=== PATIENT | male | born 1965 | race Caucasian/White ===

== ENCOUNTER → 2016-09-16 | Outpatient (CLI) | payer BC ==
[~2016-09-16] MED LIST: ASPCH81X PO; FISHOIL PO; LISI-729 PO; METO25TA3 PO; MULTTAB58 PO; ROSU20TA PO
[2016-09-16 09:38] LABS: MEAN CORPUSCULAR HEMOGLOBIN 30.2 pg (25-34); MEAN PLATELET VOLUME 9.9 fL (7.4-10.4); PLATELET COUNT 240 K/uL (130-400); RED BLOOD COUNT 5.36 M/uL (4.7-6.1); WHITE BLOOD COUNT 8.36 K/uL (4.8-10.8)
[2016-09-16 10:18] LABS: AST/SGOT 23 U/L (15-37); BLOOD UREA NITROGEN 11 mg/dl (7-18); BUN/CREATININE RATIO 11.8 (10-20); CARBON DIOXIDE 30 mmol/L (21-32); CHLORIDE 104 mmol/L (98-107); CREATININE 0.93 mg/dl (0.60-1.40); GLUCOSE 92 mg/dl (70-99); POTASSIUM 3.9 mmol/L (3.5-5.1); SODIUM 142 mmol/L (136-145)
[2016-09-16 10:27] LABS: ALB/GLOB RATIO 1.1 (0.9-2); ALKALINE PHOSPHATASE 70 U/L (45-117); ALT/SGPT 48 U/L (12-78); CHOLESTEROL 148 mg/dl (0-200); CHOLESTEROL/HDL RATIO 4.5; HDL CHOLESTEROL 33 mg/dl; LDL CHOLESTEROL CALCULATED 78 mg/dl; TRIGLYCERIDES 187 mg/dl (0-150); VERY LOW DENSITY LIPOPROT CALC 37 mg/dl
== END | disposition home or self-care (01) ==
LOC: C.LAB1850 08:38
PROVIDERS: ATTEND Internal Medicine Cardiovascular Disease
DX: I10 Essential (primary) hypertension (principal)

== ENCOUNTER → 2017-08-11 | Outpatient (CLI) | payer BC ==
[2017-08-11 10:10] LABS: BASO % 0.7 %; BASO ABS # 0.06 K/uL (0-0.2); EOS % 2.4 %; EOS ABS # 0.21 K/uL (0-0.5); HEMATOCRIT 45.5 % (42-52); IG# 0.02 K/uL (0.00-0.02); LYMPH % 35.4 %; LYMPH ABS # 3.15 K/uL (1.2-3.4); MEAN CELL VOLUME 85.8 fL (80-100); MEAN CORPUSCULAR HEMOGLOBIN 30.2 pg (25-34); MEAN CORPUSCULAR HGB CONC 35.2 g/dl (32-36); MEAN PLATELET VOLUME 9.7 fL (7.4-10.4); MONO % 9.7 %; MONO ABS # 0.86 K/uL (0.11-0.59); NEUT % 51.6 %; PLATELET COUNT 256 K/uL (130-400); RED CELL DISTRIBUTION WIDTH CV 12.3 % (11.5-14.5); RED CELL DISTRIBUTION WIDTH SD 38.6 fL (36.4-46.3)
[2017-08-11 10:28] LABS: HEMOGLOBIN A1C 5.2 % (4.5-5.6)
== END | disposition home or self-care (01) ==
LOC: C.LAB1850 08:56
PROVIDERS: ATTEND Internal Medicine Cardiovascular Disease
DX: E88.81 Metabolic syndrome and other insulin resistance (principal)

== ENCOUNTER → 2017-08-17 | Outpatient (CLI) | payer BC ==
[2017-08-17 10:01] LABS: AST/SGOT 27 U/L (15-37); BLOOD UREA NITROGEN 11 mg/dl (7-18); CALCIUM 9.1 mg/dl (8.5-10.1); CARBON DIOXIDE 29 mmol/L (21-32); GLUCOSE 91 mg/dl (70-99); POTASSIUM 3.9 mmol/L (3.5-5.1); SODIUM 136 mmol/L (136-145)
[2017-08-17 10:05] LABS: ALKALINE PHOSPHATASE 70 U/L (45-117); ALT/SGPT 52 U/L (12-78)
== END | disposition home or self-care (01) ==
LOC: C.LAB1850 08:42
PROVIDERS: ATTEND Internal Medicine Cardiovascular Disease
DX: E78.5 Hyperlipidemia, unspecified (principal); I10 Essential (primary) hypertension; I25.10 Atherosclerotic heart disease of native coronary artery without angina pectoris; I42.9 Cardiomyopathy, unspecified; E88.81 Metabolic syndrome and other insulin resistance

== ENCOUNTER 2021-11-15 19:03 | Inpatient (IN) ==
[2021-11-15 19:41] LABS: Hematocrit (blood only) 45.2 % (42-52); Hemoglobin 15.4 g/dL (14.0-18.0); Mean Corpuscular Hemoglobin 29.6 pg (25-34); Mean Corpuscular Hgb Conc 34.1 g/dL (32-36); Mean Corpuscular Volume 86.8 fL (80-100); Mean Platelet Volume 9.7 fL (7.4-10.4); Platelet Count 285 K/uL (130-400); RDW Coefficient of Variation 12.7 % (11.5-14.5); RDW Standard Deviation 40.7 fL (36.4-46.3); Red Blood Count 5.21 M/uL (4.7-6.1); White Blood Count 10.33 K/uL (4.8-10.8)
[2021-11-15] MEDS ORDERED: NITROGLYCERIN 2% OINTMENT 30GM TUBE EXT ONE (20:06)
[2021-11-15 20:07] LABS: Albumin Globulin Ratio 1.4 (0.9-2); Albumin Level 4.6 gm/dl (3.4-5.0); BUN Creatinine Ratio 11.2 (10-20); Bilirubin,Total 0.4 mg/dl (0.2-1.0); Calcium 8.7 mg/dl (8.5-10.1); Creatinine Clr Calc Pharmacy 96.1 ml/min; Est GFR (African American) 100.2 ml/min; Est GFR (Non-African American) 86.4 ml/min; Globulin 3.3 gm/dl (2.5-4.0); Potassium 3.3 mmol/L (3.5-5.1); Total Protein 7.9 gm/dl (6.0-8.3)
[2021-11-15 20:11] LABS: INR 2.5 (0.9-1.1); Partial Thromboplastin Ratio 1.6; Partial Thromboplastin Time 44.5 Seconds (21.0-31.0); Prothrombin Time 25.8 Seconds (9.0-12.0)
--- NOTE | 2021-11-15 20:12 | Emergency Department Note ---
History of Present Illness General Chief complaint: Cardiac Assessment Stated complaint: CHEST PAIN, SOB Time Seen by Provider: 11/15/21 20:00 Source: patient History of Present Illness Provider complaint: Chest pain Onset (ago): hour(s) Location: chest Radiation: other (Jaw) Pain Consistency: + constant Maximum Pain Intensity: 7 Quality: + other (Tightness) Relieved By: + none Associated symptoms: + chest pain and + shortness of breath; no cough, no fever/chills or no nausea/vomiting This is a 56-year-old male with a history of AZ presenting with chest pain beginning approximately 630 PM today while mowing the lawn with a push mower. He states it was in the middle of his chest. He describes it as a tightness. He took some Tums which did not improve his symptoms. He states that originally he did not radiate but since he has been in the emergency department he has tightness in his jaw. He did take aspirin prior to arrival. He also states that taking a deep breath makes his symptoms worse so he has been taking more shallow breaths which make him slightly short of breath. He denies any recent fever, illness, cough or cold symptoms, abdominal pain, vomiting, diarrhea or urinary symptoms. He denies using any erectile dysfunction drugs in the recent past. He states currently his chest pain is improved but he still has some slight tightness. He does feel worse tightness in his jaw currently. Home Medications Medication Instructions Recorded Confirmed Type ascorbic acid (vitamin C) 250 mg 250 - 500 mg PO DAILY 08/18/18 11/15/21 History tablet (Vitamin C) cetirizine 10 mg capsule (Zyrtec) 10 mg PO DAILY PRN 10/11/18 11/15/21 History aspirin 81 mg tablet,delayed 81 mg PO DAILY 10/29/19 11/15/21 History release (Adult Aspirin Regimen) warfarin 5 mg tablet 5 mg PO DAILY #100 tab 02/11/21 11/15/21 Rx metoprolol succinate 25 mg 25 mg PO DAILY #90 tab 02/15/21 11/15/21 Rx tablet,extended release 24 hr (Toprol XL) amlodipine 2.5 mg tablet 2.5 mg PO DAILY #90 tab 08/04/21 11/15/21 Rx cholecalciferol (vitamin D3) 25 25 mcg PO DAILY 08/04/21 11/15/21 History mcg (1,000 unit) capsule aspirin 81 mg tablet,delayed 162 mg PO .TODAY FOR SYMPTOMS 11/15/21 11/15/21 History release rosuvastatin 20 mg tablet 20 mg PO Q OTHER DAY 11/15/21 11/15/21 History rosuvastatin 40 mg tablet 40 mg PO Q OTHER DAY 11/15/21 11/15/21 History zinc gluconate 20 mg tablet 0 mg PO DAILY 11/15/21 11/15/21 History Allergies Allergy/AdvReac Type Severity Reaction Status Date / Time Penicillins Allergy Severe Hives Verified 11/15/21 21:57 Bactrim Allergy Unknown rash Verified 07/27/15 08:35 sulfamethoxazole Allergy Unknown rash Verified 11/15/21 21:57 trimethoprim Allergy Unknown rash Verified 11/15/21 21:57 atorvastatin AdvReac Intermediate Cramping Verified 11/15/21 21:57 of the Muscles dabigatran etexilate AdvReac Intermediate numbness Verified 11/15/21 21:57 [From Pradaxa] in feet lisinopril AdvReac Intermediate Cough Verified 11/15/21 21:57 losartan AdvReac Unknown Palpitation Verified 11/15/21 21:57 s apixaban [From Eliquis] AdvReac numbness Verified 11/15/21 21:57 in feet rivaroxaban [From Xarelto] AdvReac numbness Verified 11/15/21 21:57 in feet Past Med/Surg History Medical History (Updated 11/15/21 @ 20:45 by Josse Rojas MD) Acute anterior epistaxis Acute ischemic cerebrovascular accident (CVA) involving middle cerebral artery territory Acute ischemic stroke Cerebrovascular disease Ischemic cardiomyopathy 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 Presence of bare metal stent in anterior descending branch of left coronary artery Stroke Surgical History History of gastric surgery Pt states had "GI " surgery at 10 days of age for blockage Stented coronary artery Family History Other No significant family history Social History Smoking Status: Never smoker Second Hand Exposure: No; Hx Alcohol Use: No Hx Substance Use: No Preferred Language: Armenian Communication Ability: Effective Visual Impairment: No Limitations Hearing Ability: Normal Socially Responsible Investment Adviser Required: No Beliefs That Will Affect Care: None marital status: Current Living Situation: Family Feels Safe at Home: Yes Assistive Devices: Glasses Review of Systems See HPI for pertinent positives & negatives. and A total of 10 systems reviewed and were otherwise negative Physical Exam Vital Signs Vital Signs - 24 hr 11/15/21 19:07 11/15/21 19:40 11/15/21 20:00 Temperature 36.5 C Temperature Source Temporal Artery Scan Pulse Rate 56 L Pulse Rate [Apical] 54 L 60 Pulse Rate from SpO2 Sensor Respiratory Rate 20 20 16 Respiratory Effort / Characteristics Non-Labored Spontaneous Respiratory Depth Normal Blood Pressure 134/85 Blood Pressure [Right Arm] 91/61 L 116/85 Blood Pressure Mean 101 Blood Pressure Mean [Right Arm] 71 95 Pulse Oximetry 96 96 98 Oxygen Delivery Method Room Air Room Air Room Air Sepsis New/Unexplained Change in Mental Status N/A Sepsis Action Taken by Nursing No Action Required 11/15/21 20:04 11/15/21 20:30 11/15/21 21:00 Temperature Temperature Source Pulse Rate 59 L 70 Pulse Rate [Apical] Pulse Rate from SpO2 Sensor 72 Respiratory Rate 19 24 Respiratory Effort / Characteristics Respiratory Depth Blood Pressure 111/78 108/75 Blood Pressure [Right Arm] Blood Pressure Mean 89 86 Blood Pressure Mean [Right Arm] Pulse Oximetry 98 98 98 Oxygen Delivery Method Room Air Room Air Room Air Sepsis New/Unexplained Change in Mental Status Sepsis Action Taken by Nursing Constitutional: Vital signs reviewed. Eyes: Pupils are equal round reactive to light. Conjunctiva are noninjected. ENT: Pharynx is clear without erythema or exudate. Mucous membranes are moist. Neck supple without meningeal signs. Respiratory: Clear to auscultation bilaterally. Breath sounds are equal bilaterally. Cardiovascular: Regular rate and rhythm. No rubs or gallops. GI: Soft, nondistended and nontender. Bowel sounds are present. Musculoskeletal: No peripheral edema. No lower extremity tenderness. Integumentary: No cyanosis. or jaundice. Neurological: The patient is awake and alert. No focal deficits. Psychiatric: Normal affect. Not anxious appearing. Course Administered Medications Potassium Chloride (K Arian / Wtr) 10 meq in 100 mls @ 100 mls/hr IV Q1H STA; Protocol Stop: 11/15/21 22:19 Last Admin: 11/15/21 21:42 Dose: 100 mls/hr Documented by: [id number] Discontinued Medications Nitroglycerin (Nitroglycerin 2% Ointment 30gm Tube) 0.5 inch EXT NOW ONE Stop: 11/15/21 20:07 Last Admin: 11/15/21 20:11 Dose: 0.5 inch Documented by: [id number] Medical Decision Making Differential Diagnosis AZ, unstable angina, pleurisy, GERD, anxiety Medical Records Attestation: I reviewed the patient's medical records. I did perform a limited focused review of portions of the patient's old chart on the electronic medical record. The patient has had no recent pertinent visits to this hospital. Home Medications Current Medication List: was personally reviewed by me Laboratory Data Attestation: I reviewed the patient's lab results. Result diagrams: 11/15/21 19:27 11/15/21 19:27 Lab Results 11/15/21 11/15/21 11/15/21 Range/Units 19:27 19:27 19:27 WBC 10.33 (4.8-10.8) K/uL RBC 5.21 (4.7-6.1) M/uL Hgb 15.4 (14.0-18.0) g/dL Hct 45.2 (42-52) % MCV 86.8 (80-100) fL MCH 29.6 (25-34) pg MCHC 34.1 (32-36) g/dL RDW Std Deviation 40.7 (36.4-46.3) fL RDW Coeff of Eleonora 12.7 (11.5-14.5) % Plt Count 285 (130-400) K/uL MPV 9.7 (7.4-10.4) fL Neutrophils % (Manual) 26.8 % Lymphocytes % (Manual) 45.5 % Monocytes % (Manual) 6.3 % Eosinophils % (Manual) 0.9 % Basophils % (Manual) 0.9 % Neutrophils # (Manual) 2.77 (1.4-6.5) K/uL Total Absolute Neuts 2.77 (1.4-6.5) K/uL Lymphocytes # (Manual) 4.70 H (1.2-3.4) K/uL Total Abs Lymphocytes 6.72 H (1.2-3.4) K/uL Monocytes # (Manual) 0.65 H (0.11-0.59) K/uL Eosinophils # (Manual) 0.09 (0-0.5) K/uL Basophils # (Manual) 0.09 (0-0.2) K/uL Large Granular Lymphs 19.6 % # Lrg Granular Lymphs 2.02 K/uL RBC Morphology Unremarkable PT 25.8 H (9.0-12.0) Seconds INR 2.5 H (0.9-1.1) APTT 44.5 H (21.0-31.0) Seconds PTT Ratio 1.6 Sodium (136-145) mmol/L Potassium (3.5-5.1) mmol/L Chloride (98-107) mmol/L Carbon Dioxide (21-32) mmol/L Anion Gap (3-11) BUN (6-23) mg/dl Creatinine (0.6-1.4) mg/dl Est Cr Clr Drug Dosing ml/min Est GFR ( Amer) ml/min Est GFR (Non-Af Amer) ml/min BUN/Creatinine Ratio (10-20) Glucose (70-99(Fasting)) mg/dl Calcium (8.5-10.1) mg/dl Total Bilirubin (0.2-1.0) mg/dl AST (13-39) U/L ALT (7-52) U/L Alkaline Phosphatase (34-104) U/L Troponin I High Sens 11.5 (0-20) pg/ml Total Protein (6.0-8.3) gm/dl Albumin (3.4-5.0) gm/dl Globulin (2.5-4.0) gm/dl Albumin/Globulin Ratio (0.9-2) SARS-CoV-2, RNA, NAAT (NEGATIVE) 11/15/21 11/15/21 Range/Units 19:27 20:13 WBC (4.8-10.8) K/uL RBC (4.7-6.1) M/uL Hgb (14.0-18.0) g/dL Hct (42-52) % MCV (80-100) fL MCH (25-34) pg MCHC (32-36) g/dL RDW Std Deviation (36.4-46.3) fL RDW Coeff of Eleonora (11.5-14.5) % Plt Count (130-400) K/uL MPV (7.4-10.4) fL Neutrophils % (Manual) % Lymphocytes % (Manual) % Monocytes % (Manual) % Eosinophils % (Manual) % Basophils % (Manual) % Neutrophils # (Manual) (1.4-6.5) K/uL Total Absolute Neuts (1.4-6.5) K/uL Lymphocytes # (Manual) (1.2-3.4) K/uL Total Abs Lymphocytes (1.2-3.4) K/uL Monocytes # (Manual) (0.11-0.59) K/uL Eosinophils # (Manual) (0-0.5) K/uL Basophils # (Manual) (0-0.2) K/uL Large Granular Lymphs % # Lrg Granular Lymphs K/uL RBC Morphology PT (9.0-12.0) Seconds INR (0.9-1.1) APTT (21.0-31.0) Seconds PTT Ratio Sodium 138 (136-145) mmol/L Potassium 3.3 L (3.5-5.1) mmol/L Chloride 101 (98-107) mmol/L Carbon Dioxide 25 (21-32) mmol/L Anion Gap 12 H (3-11) BUN 11 (6-23) mg/dl Creatinine 0.98 (0.6-1.4) mg/dl Est Cr Clr Drug Dosing 96.1 ml/min Est GFR ( Amer) 100.2 ml/min Est GFR (Non-Af Amer) 86.4 ml/min BUN/Creatinine Ratio 11.2 (10-20) Glucose 119 H (70-99(Fasting)) mg/dl Calcium 8.7 (8.5-10.1) mg/dl Total Bilirubin 0.4 (0.2-1.0) mg/dl AST 27 (13-39) U/L ALT 31 (7-52) U/L Alkaline Phosphatase 58 (34-104) U/L Troponin I High Sens (0-20) pg/ml Total Protein 7.9 (6.0-8.3) gm/dl Albumin 4.6 (3.4-5.0) gm/dl Globulin 3.3 (2.5-4.0) gm/dl Albumin/Globulin Ratio 1.4 (0.9-2) SARS-CoV-2, RNA, NAAT NEGATIVE (NEGATIVE) Imaging Data Radiologist's Impression: Chest X-Ray 11/15/21 19:10 SINGLE VIEW CHEST CLINICAL HISTORY: Atypical chest pain FINDINGS: An AP, portable, upright chest radiograph is compared to study dated 10/15/2018. The cardiomediastinal silhouette is unremarkable. There is bibasilar atelectasis. The lungs and pleural spaces are otherwise clear. No pneumothorax is seen. The bony thorax is grossly intact. IMPRESSION: No acute cardiopulmonary abnormality. ACT 112: Negative or not required by law. Electronically signed by: Сергей Heredia M.D. 11/15/2021 8:24 PM ECG Data Attestation: I personally reviewed and interpreted this ECG as follows: Indication: + chest pain Rate (beats per minute): 58 Rhythm: + sinus bradycardia ECG Intervals/blocks: + Left bundle branch block ECG ST segments: + ST depression and + ST elevation ECG Findings: + Other (No concordant ST elevations or signs of acute AZ per Sgarbossa's criteria); no PVCs Comparison ECG Date: from (August 18, 2018) Change: no significant change (Left bundle branch block was present at the time.) Additional Comments: Repeat twelve-lead EKG performed at 2018 per my interpretation shows continued left bundle branch block. There is continued ST elevation in the inferior leads with depression in the high lateral leads. He now has depressions in the precordial leads in V1 and V2. The QRS complex is now upright where it was downward previously. Repeat twelve-lead EKG performed at 2035 per my interpretation shows normal sinus rhythm with a left bundle branch block. ST depressions are resolved in V1 and V2 and the axis is downward on the QRS. He has persistent ST elevations in the inferior leads and depressions in the high lateral leads with no criteria for AZ per sgarbossa criteria. MDM Narrative I did evaluate the patient as noted above. He is presenting with chest tightness rating into his jaw starting at 6:30 PM today while mowing the lawn with a push mower. He did take aspirin just prior to arrival. IV access was established. I did place an order for continuous cardiac monitoring. The monitor showed normal sinus rhythm at a rate of 62 bpm. I did order and personally review the patient's 12-lead EKG as described above. He has a left bundle branch block without evidence of acute AZ. I did order and personally reviewed the images of the patient's chest x-ray as described above. Chest x- ray is unremarkable. I did order and review the patient's blood work as noted in the electronic medical record. CBC is unremarkable without leukocytosis or anemia. INR is therapeutic at 2.5. Electrolytes show a potassium of 3.3 but are otherwise within normal limits. Troponin is negative. I did treat the patient with nitroglycerin paste half inch to the anterior chest wall. A repeat EKG was obtained as noted above. He appears to have some changes with ST depressions in V1 and V2 that were not previously there. I did immediately assessed the patient upon getting the EKG from the nurse. The patient states that his symptoms are now completely resolved. He has no tightness in his chest or his jaw. I did repeat another twelve-lead EKG and it appears to be the same as the first 1. He is asymptomatic currently. His COVID screening is negative. I did recommend hospitalization for further care and evaluation and repeat cardiac biomarkers. I did discuss the case with the hospitalist and egg caser. They did order a second high-sensitivity troponin and consulted cardiology. Impression & Plan Acute chest pain, Abnormal ECG, Anticoagulated on Coumadin Discharge Plan Visit Data Chief Complaint: Cardiac Assessment Stated Complaint: CHEST PAIN, SOB ED Provider: Josse Rojas Discharge Problem: Acute chest pain, Abnormal ECG, Anticoagulated on Coumadin Patient Disposition: Being Evaluated by Hospitalist Forms Stand Alone Forms: [facility] Prescriptions Prescriptions: No Action Zyrtec 10 mg capsule 10 mg PO DAILY PRN (Reason: allergy symptoms) RF: 0 aspirin [Adult Aspirin Regimen] 81 mg tablet,delayed release (DR/EC) 81 mg PO DAILY RF: 0 warfarin 5 mg tablet 5 mg PO DAILY Qty: 100 RF: 3 metoprolol succinate [Toprol XL] 25 mg tablet extended release 24 hr 25 mg PO DAILY Qty: 90 RF: 3 cholecalciferol (vitamin D3) 25 mcg (1,000 unit) capsule 25 mcg PO DAILY RF: 0 amlodipine 2.5 mg tablet 2.5 mg PO DAILY Qty: 90 RF: 3 ascorbic acid (vitamin C) [Vitamin C] 250 mg Tablet 250 - 500 mg PO DAILY RF: 0 zinc gluconate 20 mg Tablet 0 mg PO DAILY RF: 0 aspirin [Aspir-Low] 81 mg Tablet,Delayed Release (Dr/Ec) 162 mg PO .TODAY FOR SYMPTOMS RF: 0 rosuvastatin 20 mg tablet 20 mg PO Q OTHER DAY RF: 0 rosuvastatin 40 mg tablet 40 mg PO Q OTHER DAY RF: 0 Referrals Referrals: David Johnson MD [Primary Care Provider] -
--- NOTE | 2021-11-15 20:25 | XRay Report ---
SINGLE VIEW CHEST CLINICAL HISTORY: Atypical chest pain FINDINGS: An AP, portable, upright chest radiograph is compared to study dated 10/15/2018. The cardiom ediastinal silhouette is unremarkable. There is bibasilar atelectasis. The lungs and pleural spaces a re otherwise clear. No pneumothorax is seen. The bony thorax is grossly intact. IMPRESSION: No acute cardiopulmonary abnormality. ACT 112: Negative or not required by law. Electronically signed by: Сергей Heredia M.D. 11/15/2021 8:24 PM
[2021-11-15 20:30] LABS: ALC (manual) 6.72 K/uL (1.2-3.4); ANC (manual) 2.77 K/uL (1.4-6.5); Basophils # (manual) 0.09 K/uL (0-0.2); Basophils % (manual) 0.9 %; Eosinophils # (manual) 0.09 K/uL (0-0.5); Eosinophils % (manual) 0.9 %; Large Granular Lymph # (manua 2.02 K/uL; Large Granular Lymph % (manual) 19.6 %; Lymphocytes % (manual) 45.5 %; Monocytes # (manual) 0.65 K/uL (0.11-0.59); Monocytes % (manual) 6.3 %; Neutrophils # (manual) 2.77 K/uL (1.4-6.5); Neutrophils % (manual) 26.8 %; RBC Morphology Unremarkable
[2021-11-15] MEDS ORDERED: POTASSIUM CHLORIDE / WTR 10 MEQ/100 ML PLCT IV STA (21:20)
--- NOTE | 2021-11-15 21:52 | History & Physical Report ---
Date of Service November 15, 2021 Assessment & Plan (1) STEMI (ST elevation myocardial infarction): Plan: This is a 56-year-old male with past medical history of HI in 2008 and CVA in 2018 presenting to the ED with complaints of chest pain. Patient had a STEMI and a code heart alert has been called. Patient is currently clinically stable at this time. -EKG evidence with new right bundle branch block with elevated troponin at greater than 10,000 -Started on low-dose heparin without bolus as he is already chronically anticoagulated on warfarin -Discussed case with art studio teacher, Dr. Christianson, who recommended heart cath and to call a heart alert. -Patient will be taken to [facility] to have heart catheterization performed with possible sequential stent placement pending cath results -Further planning to be determined by interventional cardiology, appreciate their recommendations. -Admission to ICU postcatheterization likely (2) Hypertension: Plan: -Hold home antihypertensives -Appreciate interventional cardiology recommendations following catheterization (3) Anticoagulated on Coumadin: Plan: -Anticoagulation changes per interventional cardiology. (4) Dyslipidemia: Plan: -Continue rosuvastatin History of Present Illness Chief Complaint: Chest Pain Primary Care Provider: David Johnson MD Is a 56-year-old male with a past medical history of CAD, history of anterior HI in 2008, history of CVA in 2018, hypertension, hyperlipidemia, chronic anticoagulation on warfarin presenting to the ED for chief complaint of chest pain. Patient reports that he was using a push mower and was mowing the yard around 6:30 PM when he developed sternal chest pain. This caused the patient to take a break to go into the house and have a drink of water to which the chest pain improved. Patient went back outside to reattempt mowing the lawn again with a push mower and sequentially again developed chest pain. When the chest pain came after his second attempt of mowing the yard, he reports it did not improve when he took a break as it did previously. At that time patient took a Pepcid and 2 aspirin which was around 7 PM. His chest pain did not resolve which prompted him to go to the emergency room. At the time he describes the chest pain as a chest pressure that was midline at a 7-8 out of 10. Denies any radiation initially but it did radiate to his jaw at around 8 PM. When he arrived to the emergency room he had an EKG, troponin, routine lab work drawn. EKG showed new right bundle branch block as well as significant ST elevation in leads II, III and aVF. Initial troponin was negative but repeat 3 hours later was positive at over 10,000. Patient was given nitro patch which did relieve his symptoms. Currently at the time of writing this note patient is asymptomatic. Patient denies any shortness of breath, fever, chills, nausea, vomiting. Patient is chronically anticoagulated on warfarin and his most recent INR is 2.5 taken in the ED. Patient's last cardiology visit was with Dr. Gusman on August 04, 2021 for which she has routine care with. Allergies Allergy/AdvReac Type Severity Reaction Status Date / Time Penicillins Allergy Severe Hives Verified 11/15/21 21:57 Bactrim Allergy Unknown rash Verified 07/27/15 08:35 sulfamethoxazole Allergy Unknown rash Verified 11/15/21 21:57 trimethoprim Allergy Unknown rash Verified 11/15/21 21:57 atorvastatin AdvReac Intermediate Cramping Verified 11/15/21 21:57 of the Muscles dabigatran etexilate AdvReac Intermediate numbness Verified 11/15/21 21:57 [From Pradaxa] in feet lisinopril AdvReac Intermediate Cough Verified 11/15/21 21:57 losartan AdvReac Unknown Palpitation Verified 11/15/21 21:57 s apixaban [From Eliquis] AdvReac numbness Verified 11/15/21 21:57 in feet rivaroxaban [From Xarelto] AdvReac numbness Verified 11/15/21 21:57 in feet Home Medications Medication Instructions Recorded Confirmed Type ascorbic acid (vitamin C) 250 mg 250 - 500 mg PO DAILY 08/18/18 11/15/21 History tablet (Vitamin C) cetirizine 10 mg capsule (Zyrtec) 10 mg PO DAILY PRN 10/11/18 11/15/21 History aspirin 81 mg tablet,delayed 81 mg PO DAILY 10/29/19 11/15/21 History release (Adult Aspirin Regimen) warfarin 5 mg tablet 5 mg PO DAILY #100 tab 02/11/21 11/15/21 Rx metoprolol succinate 25 mg 25 mg PO DAILY #90 tab 02/15/21 11/15/21 Rx tablet,extended release 24 hr (Toprol XL) amlodipine 2.5 mg tablet 2.5 mg PO DAILY #90 tab 08/04/21 11/15/21 Rx cholecalciferol (vitamin D3) 25 25 mcg PO DAILY 08/04/21 11/15/21 History mcg (1,000 unit) capsule aspirin 81 mg tablet,delayed 162 mg PO .TODAY FOR SYMPTOMS 11/15/21 11/15/21 History release rosuvastatin 20 mg tablet 20 mg PO Q OTHER DAY 11/15/21 11/15/21 History rosuvastatin 40 mg tablet 40 mg PO Q OTHER DAY 11/15/21 11/15/21 History zinc gluconate 20 mg tablet 0 mg PO DAILY 11/15/21 11/15/21 History Past Med/Surg History Medical History (Updated 11/15/21 @ 22:53 by Dave Lowery DO) Acute anterior epistaxis Acute ischemic cerebrovascular accident (CVA) involving middle cerebral artery territory Acute ischemic stroke Cerebrovascular disease Ischemic cardiomyopathy 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 Presence of bare metal stent in anterior descending branch of left coronary artery Stroke Surgical History History of gastric surgery Pt states had "GI " surgery at 10 days of age for blockage Stented coronary artery Family History Other No significant family history Social History Smoking Status: Never smoker Second Hand Exposure: No; Do You Dip or Chew Tobacco: No; Tobacco Cessation Education Requested by Patient: No Hx Alcohol Use: No Hx Substance Use: No Preferred Language: Bolivian Communication Ability: Effective Visual Impairment: No Limitations Hearing Ability: Normal Neurological Physiotherapist Required: No Beliefs That Will Affect Care: None marital status: Current Living Situation: Spouse and Family Other Information That Helps Us Care for You: No Feels Safe at Home: Yes Safety Concerns: Feels Safe At This Time Assistive Devices: Glasses Review of Systems Review of Systems: All systems reviewed & are unremarkable except as noted in HPI & below Physical Exam Constitutional: WD/WN, vitals as above Eyes: + anicteric sclerae and PERRL Neck: trachea midline, no thyromegaly Respiratory: normal respiratory effort, lungs clear to auscultation Cardiovascular: RRR, no murmur, no edema Gastrointestinal (Abdomen): normal bowel sounds, soft, nontender, no hepatosplenomegaly Musculoskeletal: Head/Neck/Chest: normocephalic and head atraumatic Skin: no rashes, warm and dry Neurologic: moves all extremities Psychiatric: A+Ox3, euthymic affect Results & Data Results & Data ([facility]) Vital Signs (Past 12 Hours) Vital Signs Temp Pulse Pulse Resp BP BP Pulse Ox 11/15/21 21:00 70 24 108/75 98 11/15/21 20:30 59 L 19 111/78 98 11/15/21 20:04 98 11/15/21 20:00 60 16 116/85 98 11/15/21 19:40 54 L 20 91/61 L 96 11/15/21 19:07 36.5 C 56 L 20 134/85 96 Critical Care Time 50 minutes Supervising Physician Co-Signing Physician Notes Attending addendum: I have physically seen this patient, have supervised the medical residents activities, and agree with the H&P unless as otherwise noted. Assessment and Plan: STEMI/CAD/hypertension/history of stented coronary artery/ischemic cardiomyopathy ST elevations in leads II, III, aVF, suggesting RCA involvement Patient taken to [facility] emergently, with RCA stent placement Admits to ICU post procedure Cardiology medications per interventional Dr. Christianson Dyslipidemia- Continue high-dose statin atorvastatin Hypokalemia- Optimizing replacement orally and IV Follow serial laboratories in the a.m. Remaining orders and notations as noted Resident Activity Tracking Resident Involvement: Resident Care Provided Care Provided: Adult Hospital Medicine
[2021-11-15 21:59] LABS: Magnesium 1.9 mg/dl (1.7-2.4)
[2021-11-15 22:08] LABS: Troponin I High Sensitivity 10342.1 pg/ml (0-20)
[2021-11-15] MEDS ORDERED: Heparin IV Adult Wt-Based Standard WITH Bolus Protocol STA (22:13)
[2021-11-15] MEDS ORDERED: Heparin IV Adult Wt-Based Low-Dose *NO* Bolus Protocol IV STA (22:22)
[2021-11-15] MEDS ORDERED: HEPARIN SOD (PORCINE) 1000 UNIT/ML IV ONE (22:29)
[2021-11-15] MEDS ORDERED: HEPARIN SODIUM/DEXTROSE 25,000 UNITS/500 ML BAG IV SCH ×2 (22:30→22:45)
[2021-11-15] MEDS ORDERED: niCARdipine HCL INJ 2.5 MG/ML 10 ML AMP ONE (23:08)
[2021-11-15] MEDS ORDERED: MIDAZOLAM HCL 1 MG/ML 2ML VIAL ONE (23:08)
[2021-11-15] MEDS ORDERED: HEPARIN (PORCINE) 1000 UNIT/ML 10 ML (CATH LAB USE ONLY) ONE (23:08)
[2021-11-15] MEDS ORDERED: NITROGLYCERIN/D5W 100MCG/ML 20ML SYR ONE (23:09)
[2021-11-15] MEDS ORDERED: fentaNYL citrate 100 MCG/2 ML VIAL ONE (23:09)
--- NOTE | 2021-11-15 23:25 | Pre Anesthesia Assessment ---
Date of Service November 15, 2021 Pre Sedation Assessment Vital Signs Temp Pulse Pulse Resp BP BP Pulse Ox 11/15/21 23:03 110 H 24 138/91 11/15/21 22:30 100 H 23 133/82 96 11/15/21 22:00 74 21 111/75 11/15/21 21:30 94 H 24 134/87 98 11/15/21 21:00 70 24 108/75 98 11/15/21 20:30 59 L 19 111/78 98 11/15/21 20:04 98 11/15/21 20:00 60 16 116/85 98 11/15/21 19:40 54 L 20 91/61 L 96 11/15/21 19:07 97.7 F 56 L 20 134/85 96 Cardiovascular RRR, no murmur, no edema Respiratory normal respiratory effort, lungs clear to auscultation Pre-Sedation Airway Assessment Smoking Status: Never smoker Hx Sleep Apnea: No Hx Difficult Intubation: No Short, Thick Neck: No Thyromental Distance: > or= 3.5 Finger Breadths Oral Cavity: + WNL Mallampati Class: III ASA: ASA4 Procedure Planning Contraindications for Sedation: none Current Medications Reviewed: Yes Notes The planned sedation has been discussed with the patient. Informed Consent was obtained. I have identified the patient, determined the appropriateness of sedation and have assessed the patient immediately prior to the procedure. All medicine(s) and interventions are by my order.
--- NOTE | 2021-11-15 23:29 | Cardiology Consultation ---
Date of Consultation November 15, 2021 Assessment & Plan (1) STEMI (ST elevation myocardial infarction): Presentation consistent with high-risk ACS and recommend proceeding with urgent cardiac catheterization and likely primary PCI. No apparent contraindications to procedure. Discussed risks, benefits, alternatives of procedure with patient and they are willing to proceed. Further recommendations pending findings of coronary angiography. History of Present Illness History of Present Illness 56-year-old man here with acute chest pain and ECG concerning for acute IL. Patient seen emergently in the ED after heart alert activated after second troponin. Past cardiac history remarkable for anterolateral IL back in 2007 treated with bare-metal stent to LAD. Also has a history of prior CVA in 2018 thought to be cardioembolic, now on chronic Coumadin. Last echo 08/2021 showed LVEF 40 to 45% with apical akinesis. Other medical issues include hypertension, Dyslipidemia, GERD. Today around 6:30 PM was out mowing his lawn when developed substernal chest pressure. Symptoms improved with rest but recurred when attempted to mow his lawn again and symptoms persisted. Symptoms different than what he had with his prior IL (at that time primarily dizziness, shortness of breath). Presented to [facility] ED with ongoing chest pain, 7 out of 10. Initial ECG showed new right bundle branch block with ST elevations in 2, 3 and aVF. Initial troponin was negative. Patient was chest pain-free after nitroglycerin/nitro patch in ED. Second troponin elevated at greater than 10,000. Allergies Allergy/AdvReac Type Severity Reaction Status Date / Time Penicillins Allergy Severe Hives Verified 11/15/21 21:57 Bactrim Allergy Unknown rash Verified 07/27/15 08:35 sulfamethoxazole Allergy Unknown rash Verified 11/15/21 21:57 trimethoprim Allergy Unknown rash Verified 11/15/21 21:57 atorvastatin AdvReac Intermediate Cramping Verified 11/15/21 21:57 of the Muscles dabigatran etexilate AdvReac Intermediate numbness Verified 11/15/21 21:57 [From Pradaxa] in feet lisinopril AdvReac Intermediate Cough Verified 11/15/21 21:57 losartan AdvReac Unknown Palpitation Verified 11/15/21 21:57 s apixaban [From Eliquis] AdvReac numbness Verified 11/15/21 21:57 in feet rivaroxaban [From Xarelto] AdvReac numbness Verified 11/15/21 21:57 in feet Home Medications Medication Instructions Recorded Confirmed Type ascorbic acid (vitamin C) 250 mg 250 - 500 mg PO DAILY 08/18/18 11/15/21 History tablet (Vitamin C) cetirizine 10 mg capsule (Zyrtec) 10 mg PO DAILY PRN 10/11/18 11/15/21 History aspirin 81 mg tablet,delayed 81 mg PO DAILY 10/29/19 11/15/21 History release (Adult Aspirin Regimen) warfarin 5 mg tablet 5 mg PO DAILY #100 tab 02/11/21 11/15/21 Rx metoprolol succinate 25 mg 25 mg PO DAILY #90 tab 02/15/21 11/15/21 Rx tablet,extended release 24 hr (Toprol XL) amlodipine 2.5 mg tablet 2.5 mg PO DAILY #90 tab 08/04/21 11/15/21 Rx cholecalciferol (vitamin D3) 25 25 mcg PO DAILY 08/04/21 11/15/21 History mcg (1,000 unit) capsule aspirin 81 mg tablet,delayed 162 mg PO .TODAY FOR SYMPTOMS 11/15/21 11/15/21 History release rosuvastatin 20 mg tablet 20 mg PO Q OTHER DAY 11/15/21 11/15/21 History rosuvastatin 40 mg tablet 40 mg PO Q OTHER DAY 11/15/21 11/15/21 History zinc gluconate 20 mg tablet 0 mg PO DAILY 11/15/21 11/15/21 History Patient History Medical History (Updated 11/15/21 @ 22:53 by Dave Lowery DO) Acute anterior epistaxis Acute ischemic cerebrovascular accident (CVA) involving middle cerebral artery territory Acute ischemic stroke Cerebrovascular disease Ischemic cardiomyopathy 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 Presence of bare metal stent in anterior descending branch of left coronary a rtery Stroke Surgical History History of gastric surgery Pt states had "GI " surgery at 10 days of age for blockage Stented coronary artery Family History Other No significant family history Social History Smoking Status: Never smoker Second Hand Exposure: No; Hx Alcohol Use: No Hx Substance Use: No Preferred Language: Citizen Of [place] Communication Ability: Effective Visual Impairment: No Limitations Hearing Ability: Normal Director [employer] Required: No Beliefs That Will Affect Care: None marital status: Current Living Situation: Family Feels Safe at Home: Yes Assistive Devices: Glasses Review of Systems Review of Systems: All systems reviewed & are unremarkable except as noted in HPI & below Physical Exam Physical Exam: General: Comfortable HEENT: Sclerae anicteric, Mask in place Lungs: Clear to auscultation bilaterally Cardiac: Regular rate and rhythm, no murmurs. Vascular: 2+ radial, DP pulses. No bruits Abdomen: Soft, nontender Extremities: Well perfused, no peripheral edema Neuro: Nonfocal Psych: Alert orient x3, normal affect and mood Results & Data ([facility]) Vital Signs (Past 12 Hours) Vital Signs Temp Pulse Pulse Resp BP BP Pulse Ox 11/15/21 23:03 110 H 24 138/91 11/15/21 22:30 100 H 23 133/82 96 11/15/21 22:00 74 21 111/75 11/15/21 21:30 94 H 24 134/87 98 11/15/21 21:00 70 24 108/75 98 11/15/21 20:30 59 L 19 111/78 98 11/15/21 20:04 98 11/15/21 20:00 60 16 116/85 98 11/15/21 19:40 54 L 20 91/61 L 96 11/15/21 19:07 97.7 F 56 L 20 134/85 96 PG Care Time/CCT Total # of Minutes Spent Total Time Spent with Patient: Total time spent is greater than 50% in coordination of care (as documented) at patient's floor/unit and/or counseling patient: Coding Level of Care Code 57840 Office/OBS Consult Lvl 4 Diagnoses STEMI (ST elevation myocardial infarction) I21.3
[2021-11-15] MEDS ORDERED: EPTIFIBATIDE 2 MG/ML 10 ML VIAL (CATH LAB USE ONLY) IV ONE ×2 (23:45→23:46)
[2021-11-16] MEDS: CLOPIDOGREL BISULFATE 300 MG TAB ONE ×2 (00:10→01:36)
[2021-11-16] MEDS ORDERED: ACETAMINOPHEN 325 MG TAB PO PRN (00:12)
[2021-11-16] MEDS ORDERED: ONDANSETRON INJ 2 MG/ML 2 ML VIAL IV PRN (00:12)
--- NOTE | 2021-11-16 00:12 | Post Anesthesia Assessment ---
Date of Service November 16, 2021 Post Sedation Assessment Vital Signs Temp Pulse Pulse Resp BP BP Pulse Ox 11/15/21 23:03 110 H 24 138/91 11/15/21 22:30 100 H 23 133/82 96 11/15/21 22:00 74 21 111/75 11/15/21 21:30 94 H 24 134/87 98 11/15/21 21:00 70 24 108/75 98 11/15/21 20:30 59 L 19 111/78 98 11/15/21 20:04 98 11/15/21 20:00 60 16 116/85 98 11/15/21 19:40 54 L 20 91/61 L 96 11/15/21 19:07 97.7 F 56 L 20 134/85 96 Recovery Score Activity: Moves 4 extremities Respiration: Deep Breath/Cough Circulation: +/-20% PreAnes Value Consciousness: Fully Awake Oxygen Saturation: O2 needed for >90% Discharge Sedation Level of Care: Fast Track Phase II Post Sedation Plan On clinical assessment, the patient appears to have tolerated the sedation without complications. Patient is recovering as anticipated. Patient will continue to be monitored by nursing and may be discharged when sedation discharge criteria are met per below protocol. Upon Completions of procedure up to 15 minutes continue every 5 minute vital signs and the P.A.R. score; then discharge to a Phase I or Fast Track to Phase II per the following guidelines: * Discharge Patient to appropriate Phase II area if PAR is 8 or greater or return to pre- procedure baseline. The post - procedure orders will be as directed. * If PAR score is less than 8 or not return to pre-procedure baseline then patient will follow Phase I monitoring till PAR is reached for Phase II. The Phase I may be done in procedure room or may call to secure a Phase I area. * If naloxone or flumazenil are used for reversal, hold in Phase I for continued monitoring from when last reversal dose was given for a minimum of 60 minutes or longer pending the nurse and/or physician discretion of patient condition before discharge to Phase II. Please call the Sedation Physician to re-evaluate and complete post-note for discharge to Phase II area. Do NOT discharge from procedure sedation or Phase 1 until post- sedation evaluation note is complete by procedure /sedation MD Sedation Discharge Instructions to be given to the patient at discharge to home.
[2021-11-16] MEDS ORDERED: SODIUM CHLORIDE 0.9% 1000ML 1,000 ML IV SCH (00:15)
--- NOTE | 2021-11-16 00:32 | Cardiac Catheterization ---
[facility] Data: Nursing Program Chair Cardiac Status Clinical evaluation leading to the procedure CAD Presenation: Non STEMI Diagnostic Physicians Name: David Christianson MD Closure Device Recommendations: PCI without planned CABG Cardiac Cath Procedure Full Procedure Date November 16, 2021 Pre-Procedure Diagnosis Pre-Procedure Diagnosis: Acute Coronary Syndrome AUC Score AUC Score: 9 Post-Procedure Diagnosis Post-Procedure Diagnosis: Severe CAD, Successful PCI and Normal Intracardiac Pressures Procedure(s) Performed Procedure(s) Performed: Coronary Angiography, Left Heart Cath and Drug Eluting Stent Regional Driver David Christianson MD Thermite Bomb Loader(s) Hoa Estimated Blood Loss Estimated Blood Loss: 10 Medication(s) Medication(s): Clopidogrel, Fentanyl, Heparin, Lidocaine 1%, Nicardipine, Nitroglycerin and Versed Summary of Findings Indication: High risk ACS with presenting inferoposterior ST elevations on ECG Access: 6 Fr right radial artery Catheters: [place], JR4 guide Findings: LM -normal caliber, no significant disease LAD -medium caliber, earlymid segment stent widely patent without restenosis. Remainder of mid/distal vessel without disease and extends to apex. Medium D2 without disease Circumflex -medium caliber, no significant disease. Gives off a large OM2 without disease. Ramusmedium caliber, 30% ostial RCA -dominant, large caliber, diffuse 40% mid disease prior to 95% mid stenosis with heavy thrombus burden, distal RCA, PDA, PLB with OK II flow but without significant disease LVEDP -12 -- PCI -- Antithrombotic therapy: Heparin, IC Integrilin, clopidogrel Procedure: RCA cannulated with JR4 guide Pre-procedure flow OK 2 Inpatient Services Rn 50 wire passed across lesion into distal vessel Mid RCA lesion predilated with 2.5 compliant balloon IC Integrilin administered for heavy thrombus burden Dilated lesion stented with 3.5 x 18 mm [place] drug-eluting stent Stent post-dilated with 4.0 noncompliant balloon IC vasodilators administered for spasm Post procedure OK 3 flow, stent well expanded with minimal residual stenosis and no apparent cardiac complications. Arterial Closure: TR band Summary: 1. Acute 95% mid RCA stenosis with heavy thrombus burden and OK II distal flow. 2. Mild nonculprit coronary artery disease 40% earlymid RCA residual disease 30% ostial ramus 3. Normal intracardiac filling pressure 4. Successful PCI of mid RCA with single drug-eluting stent (3.5 x 18 mm [place]; postdilated with 4.0 NC) Recommendations: To PCU for continued monitoring Trend troponin until peak, obtain echocardiogram in the morning Loaded with clopidogrel 600 mg in Nursing Program Chair While in hospital continue triple therapy with aspirin, clopidogrel, Coumadin Discharge on dual therapy with Coumadin, clopidogrel Continue beta-marielle, start ARB. Continue home statin Consult cardiac Rehab Hemodynamics Rest Ao:: 115/77/93 Final Ao: 114/67/87 LV: 112/12 Recommendations Recommendations: PCI without planned CABG Specimens Specimens: None Radiation Exposure (mGy) 1661 Contrast (mls) 105 Anesthesia Moderate 0615-8693 Procedural Complication(s) None Disposition PCU I attest to the content of the Intraoperative Record and any orders documented therein. Any exceptions are noted below. [facility] Card Cath Procedure Codes Cardiac Catheterization Procedure 1: Cardiovascular Cath Procedures: 26641 Coronaries and LHC (+/-LV) Moderate Sedation Procedure 1: Sedation/Anesthesia: 01742 Mod Sedation by the same physician;Init15 Min Child Age 5 & Up Procedure 2: Sedation/Anesthesia: 63474 Mod Sedation by the same physician; Ea [id number] Minutes Stenting Procedure 1: Cardiovascular Stent Procedures: 18685 Perc transluminal revascularization of acute sub/total occl, aMI PG Care Time/CCT Total # of Minutes Spent Total Time Spent with Patient: Total time spent is greater than 50% in coordination of care (as documented) at patient's floor/unit and/or counseling patient:
[2021-11-16] MEDS: ASPIRIN 81 MG ECTAB PO SCH (08:01)
[2021-11-16] MEDS: CHOLECALCIFEROL 1,000 UNITS 25 MCG TAB PO SCH (08:01)
[2021-11-16] MEDS: METOPROLOL SUCC 25MG EXT REL TAB PO SCH (08:02)
[2021-11-16] MEDS: VALSARTAN 80 MG TAB PO SCH (08:02)
[2021-11-16] MEDS: ROSUVASTATIN CALCIUM 20 MG TAB PO SCH (08:02)
--- NOTE | 2021-11-16 09:24 | Electrocardiogram Report ---
Test Reason : Blood Pressure : / mmHG Vent. Rate : 080 BPM Atrial Rate : 080 BPM P-R Int : 202 ms QRS Dur : 136 ms QT Int : 374 ms P-R-T Axes : 057 -74 027 degrees QTc Int : 431 ms Normal sinus rhythm Left axis deviation Left bundle branch block Abnormal ECG When compared with ECG of 15-NOV-2021 21:49, (unconfirmed) T wave inversion no longer evident in Lateral leads Confirmed by Dom Benjamin ([id number]) on 11/16/2021 9:23:32 AM Referred By: REFERRED SELF Confirmed By:Dom Benjamin
--- NOTE | 2021-11-16 09:34 | Cardiology Progress Note ---
Date of Service November 16, 2021 Assessment & Plan (1) CAD (coronary artery disease), [place] coronary artery: Plan: Post PCI to mid RCA with single GABI Mild residual nonculprit disease 2. Ischemic cardiomyopathyEF 30% 3. Hypertension 4. Dyslipidemia 5. Prior CVA thought cardioembolicon chronic Coumadin Chest pain-free Hemodynamically and electrically stable No signs of heart failure on exam No access site complications Echo reviewedLV dilated with severe LV dysfunction, EF 30%, inferior, posterior clemons severely hypokinetic, apex remains akinetic continue triple therapy with aspirin, clopidogrel, Coumadin Continue Toprol-XL, start valsartan Continue high intensity statin. Question PCSK9 inhibitor candidate as an outpatient discussed with patient rationale for LifeVest. Patient going to think about device further trend troponin until peak. Continue to monitor on telemetry. Up walking halls today. If remains stable potential discharge tomorrow possibly with LifeVest. Admission and Anticipated Discharge Date Admission Date: November 16, 2021 Subjective Feeling well this morning. Minimal residual chest pain after procedure resolved. Denies shortness of breath. Up walking to bathroom without symptoms. Telemetry reviewedno events Review of Systems Review of Systems: All systems reviewed & are unremarkable except as noted in HPI & below Physical Exam Physical Exam: General: Comfortable HEENT: Sclerae anicteric Lungs: Scant crackles at bases bilaterally otherwise clear Cardiac: Regular rate and rhythm, no murmurs. Vascular: 2+ radial, DP pulses. Right radial artery access site with no ecchymosis, hematoma. Distal sensation intact. Abdomen: Soft, nontender Extremities: Well perfused, no peripheral edema Neuro: Nonfocal Psych: Alert orient x3, normal affect and mood Results & Data ([facility]) Vital Signs (Past 12 Hours) Vital Signs Temp Pulse Pulse Resp BP BP BP 11/16/21 07:01 98.8 F 61 18 109/64 11/16/21 04:20 98.8 F 66 18 120/71 11/16/21 03:18 98.1 F 70 17 118/83 11/16/21 02:20 76 16 113/76 11/16/21 01:49 98.4 F 78 18 105/74 11/16/21 01:48 81 18 105/74 11/16/21 01:20 72 18 115/76 11/16/21 01:05 82 18 125/69 11/16/21 01:00 79 04/26/22 00:50 74 24 112/72 11/16/21 00:35 80 20 115/72 11/15/21 23:03 110 H 24 138/91 11/15/21 22:30 100 H 23 133/82 11/15/21 22:00 74 21 111/75 11/15/21 21:30 94 H 24 134/87 Pulse Ox 11/16/21 07:01 95 11/16/21 04:20 95 11/16/21 03:18 95 11/16/21 02:20 96 11/16/21 01:49 95 11/16/21 01:48 95 11/16/21 01:20 95 11/16/21 01:05 96 11/16/21 01:00 11/16/21 00:50 96 11/16/21 00:35 95 11/15/21 23:03 11/15/21 22:30 96 11/15/21 22:00 11/15/21 21:30 98 PG Care Time/CCT Total # of Minutes Spent Total Time Spent with Patient: Total time spent is greater than 50% in coordination of care (as documented) at patient's floor/unit and/or counseling patient: Coding Level of Care Code 25235 Subseq Hosp Care Lvl 3 Diagnoses CAD (coronary artery disease), [place] coronary artery I25.10
--- NOTE | 2021-11-16 09:41 | Electrocardiogram Report ---
Test Reason : Blood Pressure : / mmHG Vent. Rate : 058 BPM Atrial Rate : 058 BPM P-R Int : 234 ms QRS Dur : 152 ms QT Int : 486 ms P-R-T Axes : -19 -69 098 degrees QTc Int : 477 ms Sinus bradycardia with 1st degree A-V block Left bundle branch block Abnormal ECG When compared with ECG of 18-AUG-2018 05:49, TN interval has increased Vent. rate has decreased BY 37 BPM Left bundle branch block is now Present Confirmed by Dom Benjamin ([id number]) on 11/16/2021 9:41:08 AM Referred By: REFERRED SELF Confirmed By:Dom Benjamin
--- NOTE | 2021-11-16 09:45 | Electrocardiogram Report ---
Test Reason : Blood Pressure : / mmHG Vent. Rate : 086 BPM Atrial Rate : 047 BPM P-R Int : 000 ms QRS Dur : 150 ms QT Int : 444 ms P-R-T Axes : 000 -75 104 degrees QTc Int : 531 ms Idioventricular rhythm Right bundle branch block Left anterior fascicular block Bifascicular block Inferior injury pattern * ACUTE CO Anterolateral infarct , age undetermined Abnormal ECG When compared with ECG of 15-NOV-2021 19:10, (unconfirmed) Idioventricular rhythm has replaced Sinus rhythm Vent. rate has increased BY 28 BPM Confirmed by Dom Benjamin ([id number]) on 11/16/2021 9:45:54 AM Referred By: REFERRED SELF Confirmed By:Dom Benjamin
--- NOTE | 2021-11-16 09:47 | Electrocardiogram Report ---
Test Reason : Blood Pressure : / mmHG Vent. Rate : 065 BPM Atrial Rate : 065 BPM P-R Int : 206 ms QRS Dur : 146 ms QT Int : 432 ms P-R-T Axes : 051 -70 103 degrees QTc Int : 449 ms Normal sinus rhythm Left bundle branch block Anterolateral infarct Inferior injury pattern * ACUTE MO Abnormal ECG When compared with ECG of 15-NOV-2021 20:19, (unconfirmed) Sinus rhythm has replaced Idioventricular rhythm Confirmed by Dom Benjamin ([id number]) on 11/16/2021 9:46:52 AM Referred By: REFERRED SELF Confirmed By:Dom Benjamin
--- NOTE | 2021-11-16 09:50 | Electrocardiogram Report ---
Test Reason : Blood Pressure : / mmHG Vent. Rate : 069 BPM Atrial Rate : 069 BPM P-R Int : 200 ms QRS Dur : 136 ms QT Int : 370 ms P-R-T Axes : 023 -73 072 degrees QTc Int : 396 ms Normal sinus rhythm Left axis deviation Left bundle branch block Abnormal ECG When compared with ECG of 15-NOV-2021 20:36, (unconfirmed) Inferior injury current has improved Confirmed by Dom Benjamin ([id number]) on 11/16/2021 9:49:51 AM Referred By: REFERRED SELF Confirmed By:Dom Benjamin
--- NOTE | 2021-11-16 11:30 | XCELERA ---
[id number]
[2021-11-16] MEDS ORDERED: WARFARIN SOD 5 MG TAB PO SCH (16:00)
--- NOTE | 2021-11-16 16:45 | Hospitalist Progress Note ---
Date of Service November 16, 2021 Assessment & Plan (1) CAD (coronary artery disease), [place] coronary artery: Plan: Post PCI to mid RCA with single GABI Continue aspirin Plavix 2. Ischemic cardiomyopathyEF 30% Currently compensated Currently on valsartan and Toprol-XL The patient could be candidate for LifeVest 3. Hypertension 4. Dyslipidemia 5. Prior CVA thought cardioembolic on chronic Coumadin Continue Toprol-XL, start valsartan Continue high intensity statin. Question PCSK9 inhibitor candidate as an outpatient If remains stable potential discharge tomorrow possibly with LifeVest. Admission and Anticipated Discharge Date Admission Date: November 16, 2021 Subjective Feeling well this morning. Minimal residual chest pain after procedure resolved. Denies shortness of breath. Up walking to bathroom without symptoms. Telemetry reviewedno events Physical Exam Physical Exam: General: Comfortable HEENT: Sclerae anicteric Lungs: Scant crackles at bases bilaterally otherwise clear Cardiac: Regular rate and rhythm, no murmurs. Vascular: 2+ radial, DP pulses. Right radial artery access site with no ecchymosis, hematoma. Distal sensation intact. Abdomen: Soft, nontender Extremities: Well perfused, no peripheral edema Neuro: Nonfocal Psych: Alert orient x3, normal affect and mood Constitutional: WD/WN, vitals as above Eyes: + anicteric sclerae and PERRL ENMT: Mallampati Class: III Neck: trachea midline, no thyromegaly Respiratory: normal respiratory effort, lungs clear to auscultation Cardiovascular: RRR, no murmur, no edema Gastrointestinal (Abdomen): normal bowel sounds, soft, nontender, no hepatosplenomegaly Musculoskeletal: Head/Neck/Chest: normocephalic and head atraumatic Skin: no rashes, warm and dry Neurologic: moves all extremities Psychiatric: A+Ox3, euthymic affect Results & Data Results & Data ([facility]) Vital Signs (Past 12 Hours) Vital Signs Temp Pulse Pulse Resp BP Pulse Ox 11/16/21 15:13 37.1 C 62 20 102/68 95 11/16/21 15:00 69 11/16/21 10:49 37.1 C 62 20 107/67 96 11/16/21 09:44 72 11/16/21 07:01 37.1 C 61 18 109/64 95 PG Care Time/CCT Total # of Minutes Spent Total Time Spent with Patient: Total time spent is greater than 50% in coordination of care (as documented) at patient's floor/unit and/or counseling patient: Coding Level of Care Code 54334 Subseq Hosp Care Lvl 2 Diagnoses CAD (coronary artery disease), [place] coronary artery I25.10
[2021-11-16] MEDS ORDERED: CLOPIDOGREL BISULFATE 75 MG TAB PO SCH (21:00)
--- NOTE | 2021-11-16 22:06 | Billing Data ---
Date of Service November 16, 2021 Coding Level of Care Code Critical Care 1st - mins
[2021-11-17 07:46] LABS: INR 2.2 (0.9-1.1); Prothrombin Time 22.2 Seconds (9.0-12.0)
[2021-11-17] MEDS: VALSARTAN 80 MG TAB PO SCH (08:30)
[2021-11-17] MEDS: ASPIRIN 81 MG ECTAB PO SCH (08:30)
[2021-11-17] MEDS: CHOLECALCIFEROL 1,000 UNITS 25 MCG TAB PO SCH (08:31)
[2021-11-17] MEDS: ROSUVASTATIN CALCIUM 20 MG TAB PO SCH (08:31)
[2021-11-17] MEDS: METOPROLOL SUCC 25MG EXT REL TAB PO SCH (08:31)
[2021-11-17 09:07] LABS: BUN Creatinine Ratio 13.4 (10-20); Calcium 8.4 mg/dl (8.5-10.1); Creatinine Clr Calc Pharmacy 113.4 ml/min; Est GFR (African American) 115.4 ml/min; Est GFR (Non-African American) 99.6 ml/min; Potassium 3.8 mmol/L (3.5-5.1)
[2021-11-17 09:17] LABS: Hematocrit (blood only) 43.3 % (42-52); Hemoglobin 14.6 g/dL (14.0-18.0); Mean Corpuscular Hemoglobin 29.1 pg (25-34); Mean Corpuscular Hgb Conc 33.7 g/dL (32-36); Mean Corpuscular Volume 86.4 fL (80-100); Platelet Count 218 K/uL (130-400); RDW Coefficient of Variation 13.1 % (11.5-14.5); RDW Standard Deviation 41.2 fL (36.4-46.3); Red Blood Count 5.01 M/uL (4.7-6.1)
--- NOTE | 2021-11-17 13:08 | Cardiology Progress Note ---
Date of Service November 17, 2021 Assessment & Plan (1) CAD (coronary artery disease), [place] coronary artery: Plan: Post PCI to mid RCA with single GABI Mild residual nonculprit disease 2. Ischemic cardiomyopathyEF 25-30% 3. Hypertension 4. Dyslipidemia 5. Prior CVA thought cardioembolicon chronic Coumadin Chest pain-free, troponin peaked No signs of heart failure on exam No access site complications Post procedure labs stable. -- Home today on clopidogrel, coumadin -- Continue current valsartan. Increase toprol XL to 50mg daily. Continue high intensity statin. Question PCSK9 inhibitor candidate as an outpatient LifeVest to be placed this afternoon. Ok with discharge after device in place. -- Follow-up with Dr. Gusman in 1-2 weeks. Admission and Anticipated Discharge Date Admission Date: November 16, 2021 Subjective Feeling well this morning. No chest pain. Slept well. tele reviewed - one episode of PAT~12 beats. No significant ventricular ectopy. Review of Systems Review of Systems: All systems reviewed & are unremarkable except as noted in HPI & below Physical Exam Physical Exam: General: Comfortable HEENT: Sclerae anicteric Lungs: Scant crackles at bases bilaterally otherwise clear Cardiac: Regular rate and rhythm, no murmurs. Vascular: 2+ radial, DP pulses. Right radial artery access site with no ecchymosis, hematoma. Distal sensation intact. Abdomen: Soft, nontender Extremities: Well perfused, no peripheral edema Neuro: Nonfocal Psych: Alert orient x3, normal affect and mood Results & Data ([facility]) Vital Signs (Past 12 Hours) Vital Signs Temp Pulse Pulse Resp BP Pulse Ox 11/17/21 11:05 98.2 F 75 16 117/68 96 11/17/21 08:00 63 11/17/21 07:03 97.9 F 74 14 129/75 94 11/17/21 03:39 98.6 F 66 16 111/62 94 PG Care Time/CCT Total # of Minutes Spent Total Time Spent with Patient: Total time spent is greater than 50% in coordination of care (as documented) at patient's floor/unit and/or counseling patient: Coding Level of Care Code 57039 Subseq Hosp Care Lvl 3 Diagnoses CAD (coronary artery disease), [place] coronary artery I25.10
--- NOTE | 2021-11-17 15:47 | Discharge Summary ---
Date of Service November 17, 2021 Admission HPI Per Admitting Provider Is a 56-year-old male with a past medical history of CAD, history of anterior DE in 2008, history of CVA in 2018, hypertension, hyperlipidemia, chronic anticoagulation on warfarin presenting to the ED for chief complaint of chest pain. Patient reports that he was using a push mower and was mowing the yard around 6:30 PM when he developed sternal chest pain. This caused the patient to take a break to go into the house and have a drink of water to which the chest pain improved. Patient went back outside to reattempt mowing the lawn again with a push mower and sequentially again developed chest pain. When the chest pain came after his second attempt of mowing the yard, he reports it did not improve when he took a break as it did previously. At that time patient took a Pepcid and 2 aspirin which was around 7 PM. His chest pain did not resolve which prompted him to go to the emergency room. At the time he describes the chest pain as a chest pressure that was midline at a 7-8 out of 10. Denies any radiation initially but it did radiate to his jaw at around 8 PM. When he arrived to the emergency room he had an EKG, troponin, routine lab work drawn. EKG showed new right bundle branch block as well as significant ST elevation in leads II, III and aVF. Initial troponin was negative but repeat 3 hours later was positive at over 10,000. Patient was given nitro patch which did relieve his symptoms. Currently at the time of writing this note patient is asymptomatic. Patient denies any shortness of breath, fever, chills, nausea, vomiting. Patient is chronically anticoagulated on warfarin and his most recent INR is 2.5 taken in the ED. Patient's last cardiology visit was with Dr. Gusman on August 04, 2021 for which she has routine care with. Principal Diagnosis Cardiac chest pain status postcardiac cath status post drug-eluting stent placement Worsening of systolic heart failure currently compensated status post LifeVest measurement pending delivery at home Discharge Exam General: Comfortable HEENT: Sclerae anicteric Lungs: Scant crackles at bases bilaterally otherwise clear Cardiac: Regular rate and rhythm, no murmurs. Vascular: 2+ radial, DP pulses. Right radial artery access site with no ecchymosis, hematoma. Distal sensation intact. Abdomen: Soft, nontender Extremities: Well perfused, no peripheral edema Neuro: Nonfocal Psych: Alert orient x3, normal affect and mood Constitutional WD/WN, vitals as above Eyes + anicteric sclerae and PERRL ENMT Mallampati Class: III Neck trachea midline, no thyromegaly Respiratory normal respiratory effort, lungs clear to auscultation Cardiovascular RRR, no murmur, no edema Gastrointestinal (Abdomen) normal bowel sounds, soft, nontender, no hepatosplenomegaly Musculoskeletal Head/Neck/Chest: normocephalic and head atraumatic Skin no rashes, warm and dry Neurologic moves all extremities Psychiatric A+Ox3, euthymic affect Discharge Data Allergies Allergy/AdvReac Type Severity Reaction Status Date / Time Penicillins Allergy Severe Hives Verified 11/15/21 21:57 Bactrim Allergy Unknown rash Verified 07/27/15 08:35 sulfamethoxazole Allergy Unknown rash Verified 11/15/21 21:57 trimethoprim Allergy Unknown rash Verified 11/15/21 21:57 atorvastatin AdvReac Intermediate Cramping Verified 11/15/21 21:57 of the Muscles dabigatran etexilate AdvReac Intermediate numbness Verified 11/15/21 21:57 [From Pradaxa] in feet lisinopril AdvReac Intermediate Cough Verified 11/15/21 21:57 losartan AdvReac Unknown Palpitation Verified 11/15/21 21:57 s apixaban [From Eliquis] AdvReac numbness Verified 11/15/21 21:57 in feet rivaroxaban [From Xarelto] AdvReac numbness Verified 11/15/21 21:57 in feet Consultations 11/15/21 20:53 ED Decision to Admit Stat Procedures Performed Operation Date: 11/15/21 23:00 Actual Procedures s Cineradiography w/Routine Exam - Karsten Christianson MD p Cath, Left with Cors and Vent - Karsten Christianson MD p Drug Eluting Stent SGl Vessel - Karsten Christiasnon MD Ordered Studies 11/15/21 23:06 CL Cath Imgs for PACS use only Stat Hospital Course (1) STEMI (ST elevation myocardial infarction): This is a 56-year-old male with past medical history of DE in 2008 and CVA in 2018 presenting to the ED with complaints of chest pain. Patient had a STEMI and a code heart alert has been called. Patient is currently clinically stable at this time. -EKG evidence with new right bundle branch block with elevated troponin at greater than 10,000 -Started on low-dose heparin without bolus as he is already chronically anticoagulated on warfarin -Status postcardiac cath and stent placement on 11/10 Post PCI to mid RCA with single GABI Mild residual nonculprit disease 2. Ischemic cardiomyopathyEF 25-30% 3. Hypertension 4. Dyslipidemia 5. Prior CVA thought cardioembolicon chronic Coumadin Chest pain-free, troponin peaked No signs of heart failure on exam No access site complications Post procedure labs stable. -- Home today on clopidogrel, coumadin -- Continue current valsartan. Increase toprol XL to 50mg daily. Continue high intensity statin. Question PCSK9 inhibitor candidate as an outpatient LifeVest agent presented measurement was done.The patient was discharged to be follow-up with cardiology office call him to make an appointment visit as per my communication with solutions market consultant lead software developer Dr. David Christianson (2) Systolic CHF with reduced left ventricular function, NYHA class 2: Echocardiogram showed EF of 25-30% which shows the ejection fraction has decreased in comparison to the echocardiogram that was done on 09/06/2021, showed ejection fraction of 44-45 Currently compensated and chronic The dose of metoprolol increased from 25-50 Discussed with cardiology continue the rest of meds (3) Hypertension: Stop Norvasc Blood pressure is on the low side Increase the dose of metoprolol from 25to 50 (4) Anticoagulated on Coumadin: -Anticoagulation changes per interventional cardiology. (5) Dyslipidemia: -Continue rosuvastatin Total Time Total Time Spent Total Time Spent (In Minutes): 45 Discharge Plan Discharge Items Patient Disposition: Home - Self-Care Reason For Visit: MYOCARDIAL INFRACTION Discharge Diagnosis: Coronary artery disease Activity: Resume your previous activity Bathing: No limitations Sexual Activity: When tolerated Exercise/Sports: Gradually increase as tolerated Driving/Machine Use: No limitations Weightbearing: Full weightbearing Non-emergency contact: Adobe Flex Developer Call non-emergency contact if: your symptoms worsen Follow-up/Referrals: David Johnson MD [Primary Care Provider] - 11/26/21 11:00 am Diet: Carb Consistent or DM2 and Low Sodium (2gm) Addtl Attending Provider Instructions: Your lead software developer office will call you for the follow-up appointment Pending Studies at Discharge: No Stand-Alone Forms: My [facility] [employer], Smoking Cessation Medications and DC Order Prescriptions: New metoprolol succinate 50 mg Tablet Extended Release 24 Hr 50 mg PO DAILY Qty: 60 RF: 0 clopidogrel 75 mg Tablet 75 mg PO HS Qty: 90 RF: 0 Continued Zyrtec 10 mg capsule 10 mg PO DAILY PRN (Reason: allergy symptoms) RF: 0 aspirin [Adult Aspirin Regimen] 81 mg tablet,delayed release (DR/EC) 81 mg PO DAILY RF: 0 warfarin 5 mg tablet 5 mg PO DAILY Qty: 100 RF: 3 cholecalciferol (vitamin D3) 25 mcg (1,000 unit) capsule 25 mcg PO DAILY RF: 0 ascorbic acid (vitamin C) [Vitamin C] 250 mg Tablet 250 - 500 mg PO DAILY RF: 0 zinc gluconate 20 mg Tablet 0 mg PO DAILY RF: 0 aspirin 81 mg Tablet,Delayed Release (Dr/Ec) 162 mg PO .TODAY FOR SYMPTOMS RF: 0 rosuvastatin 20 mg tablet 20 mg PO Q OTHER DAY RF: 0 rosuvastatin 40 mg tablet 40 mg PO Q OTHER DAY RF: 0 Discontinued metoprolol succinate [Toprol XL] 25 mg tablet extended release 24 hr 25 mg PO DAILY Qty: 90 RF: 3 amlodipine 2.5 mg tablet 2.5 mg PO DAILY Qty: 90 RF: 3 Discharge Orders: Discharge Order (Routine); Ordered 11/17/21 Ordered By: Justyn Torres Admission Data Admit Date/Time: 11/16/21 01:08 Attending Provider: Justyn Torres Admit Provider: Nadir Umanzor Primary Care Provider: David Johnson Other Providers: Alejandro Loving ; Karsten Christianson Other Interventions: Discharge Summary Assessment (RN) Last Done: 11/17/21 14:34 Coding Level of Care Code D/C DAY MANAGEMENT >30 MINS Diagnoses STEMI (ST elevation myocardial infarction) I21.3 Hypertension I10 Anticoagulated on Coumadin Z79.01 Dyslipidemia E78.5 Systolic CHF with reduced left ventricular function, NYHA class 2 I50.20
[2021-11-18] MEDS ORDERED: METOPROLOL SUCC 50MG EXT REL TAB PO SCH (09:00)
== END 2021-11-17 15:48 | disposition home or self-care (01) | DRG 247 ==
LOC: ED 19:03 → OR 23:20 → 2E 23:20 → SUATTDRO 11-16 01:08 → OBSVTOIN 11-16 01:08

== ENCOUNTER 2023-03-12 22:50 | Inpatient (IN) ==
[2023-03-12 23:46] LABS: Basophils # (auto) 0.07 K/uL (0-0.2); Basophils % (auto) 0.8 %; Eosinophils # (auto) 0.16 K/uL (0-0.50); Eosinophils % (auto) 1.8 %; Hematocrit (blood only) 44.5 % (42.0-52.0); Hemoglobin 15.8 g/dl (14.0-18.0); Immature Granulocytes # (auto) 0.01 K/uL (0.01-0.20); Immature Granulocytes % (auto) 0.1 %; Lymphocytes # (auto) 3.14 K/uL (1.2-3.4); Lymphocytes % (auto) 34.9 %; Mean Corpuscular Hemoglobin 29.8 pg (25.0-34.0); Mean Corpuscular Hgb Conc 35.5 g/dL (32.0-36.0); Mean Platelet Volume 9.6 fL (9.4-12.4); Monocytes # (auto) 1.02 K/uL (0.11-0.59); Monocytes % (auto) 11.3 %; Neutrophils # (auto) 4.59 K/uL (1.40-6.50); Neutrophils % (auto) 51.1 %; Platelet Count 250 K/uL (130-400); RDW Coefficient of Variation 12.1 % (11.5-14.5); RDW Standard Deviation 36.7 fL (36.4-46.3); White Blood Count 8.99 K/ul (4.8-10.8)
[2023-03-13 00:09] LABS: Potassium 3.4 mmol/L (3.5-5.1)
[2023-03-13 00:10] LABS: Albumin Globulin Ratio 1.6 (0.9-2); Albumin Level 4.7 gm/dl (3.4-5.0); BUN Creatinine Ratio 16.5 (10-20); Bilirubin,Total 0.4 mg/dl (0.2-1.0); Calcium 9.2 mg/dl (8.6-10.3); Creatinine Clr Calc Pharmacy 98.8 ml/min; Est GFR (African American) 108.8 ml/min; Est GFR (Non-African American) 93.9 ml/min; Globulin 2.9 gm/dl (2.5-4.0); Total Protein 7.6 gm/dl (6.0-8.3)
[2023-03-13 00:16] LABS: Troponin I High Sensitivity 10.2 pg/ml (0-20)
[2023-03-13 00:37] LABS: INR 2.3 (0.9-1.1); Partial Thromboplastin Ratio 1.5
[2023-03-13] MEDS ORDERED: POTASSIUM CHLORIDE CRTAB 20 MEQ TABCR PO STA (00:47)
--- NOTE | 2023-03-13 00:47 | Emergency Department Note ---
Impression & Plan Chest pain, Abnormal ECG ED Provider Note ED Provider Note NAME: ESTEVAN ANDERSON AGE:57 SEX: Male : 1965 ARRIVES VIA: Private vehicle INFORMANT: Patient ED PROVIDER(s): Kaitlynn Soto DO CHIEF COMPLAINT: Increased fatigue, chest pain, jaw pain HPI: This is a 57-year-old male presents emergency department due to concern for increased fatigue with any exertion over the last 3 to 4 weeks, intermittent bilateral upper chest pain, and recent jaw pain additionally while walking around the [facility]. Patient with significant cardiac history and prior stents. He does follow with Dr. Gusman of cardiology. Patient is anticoagulated due to history of a prior CVA which was thought to be thromboembolic. Patient notes symptoms initially seemed related to exertion although he has noticed intermittent upper abdominal pressure that seems to correlate with eating additionally. He states he is taking his medications as prescribed and as of Monday his INR was 2.9. He denies any other recent trauma or change in activity, no recent illness, fevers or chills. PAST MEDICAL HISTORY:See Below PAST SURGICAL HISTORY:See Below FAMILY HISTORY:See Below SOCIAL HISTORY:See Below HOME MEDICATIONS:See Below ALLERGIES:See Below VITALS:See Below PHYSICAL EXAMINATION: GENERAL: alert, well appearing, well nourished, no distress, non-toxic EYE EXAM: normal conjunctiva, PERRL and EOM's grossly intact OROPHARYNX: no exudate, no erythema, lips, buccal mucosa, and tongue normal and mucous membranes are moist NECK: supple, no nuchal rigidity, no adenopathy, non-tender LUNGS: Clear to auscultation. Normal chest wall mechanics, no w/r/r HEART: no murmurs, S1 normal and S2 normal ABDOMEN: abdomen soft, non-tender, normo-active bowel sounds, no masses, no rebound or guarding. BACK: Back is symmetrical on inspection and there is no deformity, no midline tenderness, no CVA tenderness. SKIN: no rashes, petechiae, orbruising UPPER EXTREMITIES: upper extremities are grossly normal. FROM, nml pulses b/l. LOWER EXTREMITIES: No pitting edema. FROM, nml pulses b/l. NEURO EXAM: Normal sensorium, cranial nerves II-XII grossly intact, normal speech, no facial droop,nogross weakness of arms, no gross weakness of legs. Gross sensation intact. No ataxia. Vital Signs: reviewed and remarkable Differential Diagnosis: ACS, PE, PNA, dissection, pericardial effusion, biliary colic, pancreatitis, pericarditis/myocarditis, hypertensive urgency, MEDICAL DECISION MAKING: This is a 57-year-old male with extensive heart history who presents with 3 to 4 weeks of increased fatigue with exertion, intermittent chest pain, intermittent epigastric pain, and tonight while walking around a local fair also experienced accompanying jaw pain. Patient afebrile and vital signs stable. Patient noted to have abnormal EKG by nursing staff who brought it to me for review. This was compared to a prior EKG and did reveal new changes. Patient seen by myself urgently while out in the triage area utilizing room D8. Labs drawn and sent, IV established, EKG and CXR performed and interpreted at bedside, and patient placed on telemetry. I did review EKGs with Dr. Christianson who performed the patient's cardiac catheterization last year. Agrees with plan for additional evaluation. EKG changes do not meet criteria for emergent catheterization. Patient had no recurrent symptoms while resting here. We discussed all results and plan, he verbalized understanding was in agreement. Patient sent for upper abdominal ultrasound additionally due to accompanying epigastric pain, this is reassuring. Chest x-ray otherwise reassuring. First troponin negative. Consultation(s): 2325: Discussed with Dr. Christianson via text after reviewing EKG's. 0125: Discussed with Dr. Loving for additional in patient management and evaluation. ER Treatment Provided: See below 0055: Patient updated on results. No current symptoms. Diagnostics Interpreted By Co: -ECG: Normal sinus at 77, first-degree AV block, left axis deviation, left bundle branch block, new inverted T wave noted in aVL, mildly increased ST elevation in V2 and V3, these were compared to an EKG from November 16, 2021 -Cardiac Monitoring: An order was placed for continuous cardiac monitoring. The monitor shows a rate of 80 with normal sinus rhythm. -Laboratory studies: As stated above and show below. -Imaging studies: X-ray Chest: A single view study of the chest was reviewed and was negative for cardiomegaly, focal infiltrate, effusion, pulmonary edema, or wide mediastinum. Triage Nursing Note Reviewed Prior/Outside Records Reviewed Past Med/Surg History Medical History (Updated 03/13/23 @ 01:57 by Alejandro Loving MD) Acute anterior epistaxis Acute ischemic cerebrovascular accident (CVA) involving middle cerebral artery territory Acute ischemic stroke Cerebrovascular disease Encounter for screening for malignant neoplasm of colon Encounter for screening for malignant neoplasm of rectum Ischemic cardiomyopathy Left bundle branch block (LBBB) 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 Presence of bare metal stent in anterior descending branch of left coronary artery STEMI (ST elevation myocardial infarction) Stroke Surgical History History of gastric surgery Pt states had "GI " surgery at 11 days of age for blockage Stented coronary artery Family History Other No significant family history Social History Smoking Status: Never smoker Second Hand Exposure: No; Do You Dip or Chew Tobacco: No; Hx Alcohol Use: No Hx Substance Use: No Preferred Language: Armenian Communication Ability: Effective Visual Impairment: No Limitations Hearing Ability: Normal Civil Engineering Intern Required: No Beliefs That Will Affect Care: None marital status: Current Living Situation: Spouse and Family Feels Safe at Home: Yes Assistive Devices: Glasses Allergies Allergies Allergy/AdvReac Type Severity Reaction Status Date / Time Penicillins Allergy Severe Hives Verified 03/13/23 00:20 Sulfa (Sulfonamide Allergy Intermediate Rash Verified 03/13/23 00:20 Antibiotics) sulfamethoxazole Allergy Intermediate rash Verified 03/13/23 00:20 trimethoprim Allergy Intermediate rash Verified 03/13/23 00:20 apixaban [From Eliquis] AdvReac Intermediate numbness Verified 03/13/23 00:20 in feet atorvastatin AdvReac Intermediate Cramping Verified 03/13/23 00:20 of the Muscles dabigatran etexilate AdvReac Intermediate numbness Verified 03/13/23 00:20 [From Pradaxa] in feet lisinopril AdvReac Intermediate Cough Verified 03/13/23 00:20 losartan AdvReac Intermediate Palpitation Verified 03/13/23 00:20 s rivaroxaban [From Xarelto] AdvReac Intermediate numbness Verified 03/13/23 00:20 in feet Home Meds Home Medications Medication Instructions Recorded Confirmed ascorbic acid (vitamin C) 250 mg 250 - 500 mg PO DAILY 08/18/18 03/13/23 tablet (Vitamin C) cetirizine 10 mg capsule (Zyrtec) 10 mg PO DAILY PRN allergy symptoms 10/11/18 03/13/23 cholecalciferol (vitamin D3) 25 25 mcg PO DAILY 03/13/23 03/13/23 mcg (1,000 unit) capsule (Vitamin D3) warfarin 5 mg tablet See Rx Instructions .Route .COMPLEX 03/13/23 03/13/23 zinc gluconate 50 mg tablet 0 mg PO DAILY 03/13/23 03/13/23 Previous Rx's Medication Instructions Recorded rosuvastatin 20 mg tablet 20 mg PO DAILY #90 tabs 05/09/22 valsartan 40 mg tablet 40 mg PO DAILY #90 tabs 11/24/22 clopidogrel 75 mg tablet 75 mg PO HS #90 tabs 02/08/23 metoprolol succinate 25 mg 25 mg PO DAILY #90 tabs 02/14/23 tablet,extended release 24 hr Results & Data (ED) Vital Signs Vital Signs - 24 hr 03/12/23 22:56 03/12/23 23:35 03/12/23 23:35 Temperature 36.8 C Temperature Source Temporal Artery Scan Pulse Rate 87 80 Pulse Rate [Apical] Pulse Rhythm Regular Pulse Rhythm [Apical] Pulse Strength Normal Pulse Strength [Apical] Respiratory Rate 16 16 Respiratory Effort / Characteristics Non-Labored Spontaneous Respiratory Depth Normal Respiratory Pattern Blood Pressure 154/85 H Blood Pressure [Right Arm] Blood Pressure Mean 108 Blood Pressure Mean [Right Arm] Blood Pressure Position Sitting Pulse Oximetry 97 96 96 Oxygen Delivery Method Room Air Room Air Room Air Oxygen Flow Rate 0 Sepsis Recent Fever Within 48 Hours No Sepsis New/Unexplained Change in Mental Status N/A Sepsis Action Taken by Nursing No Action Required 03/12/23 22:51 03/13/23 00:10 03/13/23 01:00 Temperature Temperature Source Pulse Rate 82 Pulse Rate [Apical] 68 Pulse Rhythm Pulse Rhythm [Apical] Regular Pulse Strength Pulse Strength [Apical] Normal Respiratory Rate 15 Respiratory Effort / Characteristics Non-Labored Spontaneous Respiratory Depth Normal Respiratory Pattern Regular Blood Pressure Blood Pressure [Right Arm] 122/85 Blood Pressure Mean Blood Pressure Mean [Right Arm] 97 Blood Pressure Position Pulse Oximetry 97 97 Oxygen Delivery Method Room Air Room Air Oxygen Flow Rate 0 Sepsis Recent Fever Within 48 Hours Sepsis New/Unexplained Change in Mental Status Sepsis Action Taken by Nursing Laboratory Data 03/12/23 23:30 08/20/23 23:30 Lab Results 03/12/23 03/12/23 03/12/23 Range/Units 23:30 23:30 23:30 WBC 8.99 (4.8-10.8) K/ul RBC 5.30 (4.70-6.10) M/uL Hgb 15.8 (14.0-18.0) g/dl Hct 44.5 (42.0-52.0) % MCV 84.0 (80.0-100.0) fL MCH 29.8 (25.0-34.0) pg MCHC 35.5 (32.0-36.0) g/dL RDW Std Deviation 36.7 (36.4-46.3) fL RDW Coeff of Eleonora 12.1 (11.5-14.5) % Plt Count 250 (130-400) K/uL MPV 9.6 (9.4-12.4) fL Immature Gran % (Auto) 0.1 % Neut % (Auto) 51.1 % Lymph % (Auto) 34.9 % [place] % (Auto) 11.3 % Eos % (Auto) 1.8 % Baso % (Auto) 0.8 % Neut # (Auto) 4.59 (1.40-6.50) K/uL Lymph # (Auto) 3.14 (1.2-3.4) K/uL [place] # (Auto) 1.02 H (0.11-0.59) K/uL Eos # (Auto) 0.16 (0-0.50) K/uL Baso # (Auto) 0.07 (0-0.2) K/uL Immature Gran # (Auto) 0.01 (0.01-0.20) K/uL PT 24.0 H (9.0-12.0) Seconds INR 2.3 H (0.9-1.1) APTT 43.0 H* (21.0-31.0) Seconds PTT Ratio 1.5 Sodium 138 (136-145) mmol/L Potassium 3.4 L (3.5-5.1) mmol/L Chloride 103 (98-107) mmol/L Carbon Dioxide 28 (21-32) mmol/L Anion Gap 7 (3-11) BUN 15 (6-23) mg/dl Creatinine 0.91 (0.6-1.4) mg/dl Est Cr Clr Drug Dosing 98.8 ml/min Est GFR ( Amer) 108.8 ml/min Est GFR (Non-Af Amer) 93.9 ml/min BUN/Creatinine Ratio 16.5 (10-20) Glucose 126 H (70-99(Fasting)) mg/dl Calcium 9.2 (8.6-10.3) mg/dl Magnesium 2.0 (1.7-2.4) mg/dl Total Bilirubin 0.4 (0.2-1.0) mg/dl AST 29 (13-39) U/L ALT 32 (7-52) U/L Alkaline Phosphatase 48 (34-104) U/L Troponin I High Sens 10.2 (0-20) pg/ml Total Protein 7.6 (6.0-8.3) gm/dl Albumin 4.7 (3.4-5.0) gm/dl Globulin 2.9 (2.5-4.0) gm/dl Albumin/Globulin Ratio 1.6 (0.9-2) Administered Medications Discontinued Medications Potassium Chloride (Potassium Chloride Crtab 20 Meq Tabcr) 40 meq PO NOW STA Stop: 03/13/23 00:48 Last Admin: 03/13/23 02:31 Dose: 40 meq Documented By: EWA Discharge Plan Visit Data Chief Complaint: Cardiac Assessment Stated Complaint: JAW PAIN,CHEST PAIN,PRIOR HEART ISSUES ED Provider: Kaitlynn Soto Discharge Problem: Chest pain, Abnormal ECG Patient Disposition: Admitted As Inpatient Discharge Instructions Interventions: ED Discharge Assessment Last Done: 03/13/23 03:30
--- NOTE | 2023-03-13 02:01 | History & Physical Report ---
Date of Service March 13, 2023 Assessment & Plan (1) Unstable angina: (2) Left bundle branch block (LBBB): (3) Antiplatelet or antithrombotic long-term use: (4) Presence of drug-eluting stent in right coronary artery: (5) Presence of bare metal stent in anterior descending branch of left coronary artery: (6) Ischemic cardiomyopathy: (7) Cerebrovascular disease: (8) Dyslipidemia: (9) Gastroesophageal reflux disease: (10) Hypertension: (11) Hyperlipidemia LDL goal <70: (12) CAD (coronary artery disease), [place] coronary artery: Plan Unstable angina/CAD/bare-metal stent in anterior branch of left coronary artery/drug-eluting stent in RCA/LBBB/hypertension- The patient will be admitted to telemetry for serial cardiac enzymes, serial EKG's, cardiac rhythm monitoring and a 2-D echocardiogram with Dopplers. Continue Plavix 75 mg daily, metoprolol succinate 25 mg daily, valsartan 40 mg daily Warfarin is presently therapeutic with INR of 2.3, but will hold and lieu of potential cardiac catheterization in the morning If delayed, patient will need to start on heparin drip Consult to interventional cardiology Dr. Christianson, who did his last interventions last year Hypokalemia- Potassium 3.4 on admission. Given 40 mEq p.o. by the ED Check a magnesium level Recheck laboratories in a.m. Hyperlipidemia- Patient has been intolerant of his rosuvastatin 20 mg since he was unable to tolerate 40, and will cut back up to 20 again he can again get gets right foot pain We will attempt to restart it 10 mg this admission after getting a 20 mg dose History of Present Illness Chief Complaint: The patient presents to the emergency department with complaint of exertional chest discomfort over the past 3 to 4 weeks, which worsened considerably 2 nights ago. 2 nights ago he had symptoms from his epigastrium that radiated up into his chest and into his subclavicular areas. This past evening he was walking a few miles at the [employer], slightly more than 2 days ago, and he had some epigastric discomfort but this time the discomfort went up and over the left side of his jaw. Symptoms did again resolve with rest, however, because of the change in intensity and character of the symptoms, he presented to the ED with his for assessment. Primary Care Provider: David Johnson MD The patient is a 57-year-old male with a past medical history including CAD, drug-eluting RCA stent, HFrEF with EF 35-40%, hyperlipidemia, long-term use of anticoagulation, history of [place], hypertension, GERD, pyogenic granuloma of nares, bare-metal stent in the anterior descending branch of left coronary artery, ischemic cardiomyopathy and cerebrovascular disease. The patient presents with symptoms as noted above, suggestive of unstable angina. He does describe some reflux type symptoms, which could be further addressed after his cardiac work- up. He has been taking his Coumadin as directed, and INR is 2.3, and has also been taking his Plavix as directed. He has been having difficulty tolerating his rosuvastatin, as it has been causing some right foot pain, similar to what happened with him with statins in the past. Allergies Allergy/AdvReac Type Severity Reaction Status Date / Time Penicillins Allergy Severe Hives Verified 03/13/23 00:20 Sulfa (Sulfonamide Allergy Intermediate Rash Verified 03/13/23 00:20 Antibiotics) sulfamethoxazole Allergy Intermediate rash Verified 03/13/23 00:20 trimethoprim Allergy Intermediate rash Verified 03/13/23 00:20 apixaban [From Eliquis] AdvReac Intermediate numbness Verified 03/13/23 00:20 in feet atorvastatin AdvReac Intermediate Cramping Verified 03/13/23 00:20 of the Muscles dabigatran etexilate AdvReac Intermediate numbness Verified 03/13/23 00:20 [From Pradaxa] in feet lisinopril AdvReac Intermediate Cough Verified 03/13/23 00:20 losartan AdvReac Intermediate Palpitation Verified 03/13/23 00:20 s rivaroxaban [From Xarelto] AdvReac Intermediate numbness Verified 03/13/23 00:20 in feet Home Medications Medication Instructions Recorded Confirmed Type ascorbic acid (vitamin C) 250 mg 250 - 500 mg PO DAILY 08/18/18 03/13/23 History tablet (Vitamin C) cetirizine 10 mg capsule (Zyrtec) 10 mg PO DAILY PRN allergy symptoms 10/11/18 03/13/23 History rosuvastatin 20 mg tablet 20 mg PO DAILY #90 tabs 05/09/22 03/13/23 Rx valsartan 40 mg tablet 40 mg PO DAILY #90 tabs 11/24/22 03/13/23 Rx clopidogrel 75 mg tablet 75 mg PO HS #90 tabs 02/08/23 03/13/23 Rx metoprolol succinate 25 mg 25 mg PO DAILY #90 tabs 02/14/23 03/13/23 Rx tablet,extended release 24 hr cholecalciferol (vitamin D3) 25 25 mcg PO DAILY 03/13/23 03/13/23 History mcg (1,000 unit) capsule (Vitamin D3) warfarin 5 mg tablet See Rx Instructions .Route .COMPLEX 03/13/23 03/13/23 History zinc gluconate 50 mg tablet 0 mg PO DAILY 03/13/23 03/13/23 History Past Med/Surg History Medical History (Updated 03/13/23 @ 01:57 by Alejandro Loving MD) Acute anterior epistaxis Acute ischemic cerebrovascular accident (CVA) involving middle cerebral artery territory Acute ischemic stroke Cerebrovascular disease Encounter for screening for malignant neoplasm of colon Encounter for screening for malignant neoplasm of rectum Ischemic cardiomyopathy Left bundle branch block (LBBB) 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 Presence of bare metal stent in anterior descending branch of left coronary artery STEMI (ST elevation myocardial infarction) Stroke Surgical History History of gastric surgery Pt states had "GI " surgery at 11 days of age for blockage Stented coronary artery Family History Other No significant family history Social History Smoking Status: Never smoker Second Hand Exposure: No; Do You Dip or Chew Tobacco: No; Hx Alcohol Use: No Hx Substance Use: No Preferred Language: Macedonian Communication Ability: Effective Visual Impairment: No Limitations Hearing Ability: Normal Saxophone Teacher Required: No Beliefs That Will Affect Care: None marital status: Current Living Situation: Spouse and Family Feels Safe at Home: Yes Assistive Devices: Glasses Review of Systems Review of Systems: The patient denies palpitations, cough, lower extremity swelling, sore throat, fevers, chills, sweats, nausea, vomiting, diarrhea , constipation, abdominal pain, pelvic pain, blood in urine or stool, dysuria, urinary frequency or urgency, lightheadedness, dizziness, headache, memory loss, loss of consciousness, rash, abnormal bruising or bleeding, imbalance, focal or generalized weakness, numbness or tingling in arms or legs, generalized arthralgias or myalgias, back pain, or night sweats. The review of systems is otherwise negative other than for that already noted above, and at least 10 systems have been reviewed. Physical Exam Physical Exam: The patient is awake, alert and oriented 3, well developed and well nourished, normocephalic and atraumatic, lying in bed and in no acute distress. HEENT--PERRL, EOMI, mucous membranes and oropharynx normal. Neck--supple. No JVD. No bruits. Thyroid normal, trachea midline, no adenopathy. Heart--normal S1 and S2. No murmurs, rubs or gallops. Lungs--clear bilaterally, no respiratory distress, no accessory muscle use. Abdomen--normal bowel sounds and soft. Nontender. Nondistended, no hernias or masses, no organomegaly. Extremities--no cyanosis or clubbing. No edema. Dermatologic--normal skin turgor, normal color, no abnormal lymph nodes, no rash. Neurologic--cranial nerves II through XII grossly intact. Rheumatologic--normal range of motion. Psychiatric--normal affect. Results & Data Results & Data Vital Signs (Past 12 Hours) Vital Signs Temp Pulse Resp BP Pulse Ox O2 Del Method O2 Flow Rate 03/13/23 00:10 82 03/12/23 22:51 97 Room Air 0 03/12/23 23:35 80 16 96 Room Air 03/12/23 23:35 96 Room Air 0 03/12/23 22:56 36.8 C 87 16 154/85 H 97 Room Air Laboratory Results Laboratory Results WBC 8.99 K/ul (4.8-10.8) 03/12/23 23:30 RBC 5.30 M/uL (4.70-6.10) 03/12/23 23:30 Hgb 15.8 g/dl (14.0-18.0) 03/12/23 23:30 Hct 44.5 % (42.0-52.0) 03/12/23 23:30 MCV 84.0 fL (80.0-100.0) 03/12/23 23:30 MCH 29.8 pg (25.0-34.0) 03/12/23 23:30 MCHC 35.5 g/dL (32.0-36.0) 03/12/23 23: RDW Std Deviation 36.7 fL (36.4-46.3) 03/12/23: RDW Coeff of Eleonora 12.1 % (11.5-14.5) 03/12/23 23:30 Plt Count 250 K/uL (130-400) 03/12/23 23: MPV 9.6 fL (9.4-12.4) 03/12/23 23: Immature Gran % (Auto) 0.1 % 03/12/23 23:30 Neut % (Auto) 51.1 % 03/12/23 23:30 Lymph % (Auto) 34.9 % 03/12/23 23: [place] % (Auto) 11.3 % 03/12/23 23:30 Eos % (Auto) 1.8 % 03/12/23 23: Baso % (Auto) 0.8 % 03/12/23 23: Neut # (Auto) 4.59 K/uL (1.40-6.50) 03/12/23 23:30 Lymph # (Auto) 3.14 K/uL (1.2-3.4) 03/12/23 23:30 [place] # (Auto) 1.02 K/uL (0.11-0.59) H 03/12/23 23:30 Eos # (Auto) 0.16 K/uL (0-0.50) 03/12/23 23:30 Baso # (Auto) 0.07 K/uL (0-0.2) 03/12/23 23:30 Immature Gran # (Auto) 0.01 K/uL (0.01-0.20) 03/12/23 23:30 PT 24.0 Seconds (9.0-12.0) H 03/12/23 23:30 INR 2.3 (0.9-1.1) H 03/12/23 23:30 APTT 43.0 Seconds (21.0-31.0) H* 03/12/23 23:30 PTT Ratio 1.5 03/12/23 23:30 Sodium 138 mmol/L (136-145) 03/12/23 23:30 Potassium 3.4 mmol/L (3.5-5.1) L 03/12/23 23:30 Chloride 103 mmol/L (98-107) 03/12/23 23:30 Carbon Dioxide 28 mmol/L (21-32) 03/12/23 23:30 Anion Gap 7 (3-11) 03/12/23 23:30 BUN 15 mg/dl (6-23) 03/12/23 23:30 Creatinine 0.91 mg/dl (0.6-1.4) 03/12/23 23:30 Est Cr Clr Drug Dosing 98.8 ml/min 03/12/23 23:30 Est GFR ( Amer) 108.8 ml/min 03/12/23 23:30 Est GFR (Non-Af Amer) 93.9 ml/min 03/12/23 23:30 BUN/Creatinine Ratio 16.5 (10-20) 03/12/23 23:30 Glucose 126 mg/dl (70-99(Fasting)) H 03/12/23 23:30 Calcium 9.2 mg/dl (8.6-10.3) 03/12/23 23:30 Total Bilirubin 0.4 mg/dl (0.2-1.0) 03/12/23 23:30 AST 29 U/L (13-39) 03/12/23 23:30 ALT 32 U/L (7-52) 03/12/23 23:30 Alkaline Phosphatase 48 U/L (34-104) 03/12/23 23:30 Troponin I High Sens 10.2 pg/ml (0-20) 03/12/23 23:30 Total Protein 7.6 gm/dl (6.0-8.3) 03/12/23 23:30 Albumin 4.7 gm/dl (3.4-5.0) 03/12/23 23:30 Globulin 2.9 gm/dl (2.5-4.0) 03/12/23 23:30 Albumin/Globulin Ratio 1.6 (0.9-2) 03/12/23 23:30 Code Status & VTE Plan Code Status Full code VTE Prophylaxis Plan VTE Prophylaxis will be ordered: Yes PG Care Time/CCT Total # of Minutes Spent Total Time Spent with Patient: Total time spent is greater than 50% in coordination of care (as documented) at patient's floor/unit and/or counseling patient: Coding Level of Care Code 52247 INT INP/OBS CARE MIN Diagnoses Unstable angina I20.0 Left bundle branch block (LBBB) I44.7 Antiplatelet or antithrombotic long-term use Z79.02 Presence of drug-eluting stent in right coronary artery Z95.5 Presence of bare metal stent in anterior descending branch of left coronary artery Z95.5 Ischemic cardiomyopathy I25.5 Cerebrovascular disease I67.9 Dyslipidemia E78.5 Gastroesophageal reflux disease K21.9 Hypertension I10 Hyperlipidemia LDL goal <70 E78.5 CAD (coronary artery disease), [place] coronary artery I25.10
[2023-03-13] MEDS ORDERED: CETIRIZINE HCL 10 MG TABLET PO PRN (03:29)
[2023-03-13] MEDS ORDERED: ACETAMINOPHEN 325 MG TAB PO PRN (03:29)
[2023-03-13] MEDS ORDERED: NSS + 20MEQ KCL 20 MEQ/1,000 ML BAG IV SCH (04:15)
[2023-03-13 05:31] LABS: Albumin Level 4.4 gm/dl (3.4-5.0); BUN Creatinine Ratio 13.3 (10-20); Calcium 9.2 mg/dl (8.6-10.3); Creatinine Clr Calc Pharmacy 108.3 ml/min; Est GFR (Non-African American) 98.4 ml/min; Phosphorus 3.8 mg/dl (2.5-4.9); Potassium 4.5 mmol/L (3.5-5.1); Troponin I High Sensitivity 11.4 pg/ml (0-20)
--- NOTE | 2023-03-13 06:43 | Ultrasound Report ---
US abdomen limited CLINICAL HISTORY: epigastric pain after eating TECHNIQUE: Multiple real-time sonographic images of the right upper quadrant were obtained. Comparison: None available at the time of this dictation. FINDINGS: The liver is diffusely homogenous with normal contour and echogenicity. Small cluster of probable cys ts measure up to 1 cm in diameter. No intrahepatic ductal dilatation is seen. Gallbladder appears c ontracted without stones or wall thickening. A sonographic Watson's sign was not elicited by the sono grapher. The common duct measures 0.3 cm in diameter at the level of the hepatic artery. The visua lized portions of the pancreas appear normal. The right kidney shows normal echogenicity, cortical thickness and renal contour. The right kidney sh ows no evidence of hydronephrosis or mass. No ascites or free fluid is seen in Campo's pouch. IMPRESSION: Unremarkable right upper quadrant ultrasound. ACT 112: Negative or not required by law. Electronically signed by: Fabian Soto M.D. 03/13/2023 6:42 AM
--- NOTE | 2023-03-13 07:30 | XRay Report ---
XR chest 1V not portable CLINICAL HISTORY: Chest pain, nonspecific TECHNIQUE: Single frontal radiograph of the chest was obtained. Comparison: Comparison is made to chest radiograph 11/15/2021 FINDINGS: No lines and tubes are seen. The cardiomediastinal silhouette is normal. The lungs are clear. No evid ence of pleural effusion or pneumothorax. IMPRESSION: No acute chest disease. ACT 112: Negative or not required by law. Electronically signed by: Fabian Soto M.D. 03/13/2023 7:29 AM
[2023-03-13] MEDS: ZINC SULFATE 220 MG CAPSULE PO SCH (07:57)
[2023-03-13] MEDS: VALSARTAN 80 MG TAB PO SCH (07:57)
[2023-03-13] MEDS: ROSUVASTATIN CALCIUM 20 MG TAB PO SCH (07:58)
[2023-03-13] MEDS: CHOLECALCIFEROL 1,000 UNITS 25 MCG TAB PO SCH (07:58)
[2023-03-13] MEDS: METOPROLOL SUCC 25MG EXT REL TAB PO SCH (07:58)
--- NOTE | 2023-03-13 08:59 | Hospitalist Progress Note ---
Date of Service March 13, 2023 Assessment & Plan (1) Unstable angina: Plan: pt presented with CP, h/o CAD had a Bare metal stent LAD, GABI 11/13, RCA on plavix, metoprolol,cretor, valsartan initial troponin 10->11 Pt with a history of chronic systolic heart failure, EF 35-40% Warfarin is presently therapeutic with INR of 2. 6, warfarin remains on hold due to potential cardiac catheterization interventional cardiology wishes to wait until patient's INR is less than 2 Given 2.5 mg of p.o. vitamin K subsequently once his INR reduces below 1.9 we will institute heparin drip as the patient has had neurological symptoms once his INR is been low Dr. Sandoval is a chain sales consultant involved in this case (2) Cerebrovascular disease: Plan: Acute ischemic cerebrovascular accident (CVA) involving middle cerebral artery territory (3) Gastroesophageal reflux disease: Admission and Anticipated Discharge Date Admission Date: March 13, 2023 Subjective patient with symptoms of unstable angina with increasing dyspnea chest pressure with radiation to his jaw decreased exercise tolerance. Cardiology encourages his unstable angina but wishes to wait for his INR to reduce before proceeding to catheterization in the past the patient's had recurrent of neurological symptoms when his INR was subtherapeutic therefore we will bridge with heparin once his INR is below 1.9 Discussed with patient the issues with his INR patient is in agreement to low- dose vitamin K we will continue to survey his INR once below 2 will consider heparin infusion Anticipate cardiac catheterization on 03/15/2023 Physical Exam Physical Exam: patient awake alert appropriate he is pain-free at this time cardiac exam is regular lungs are clear Results & Data Results & Data Vital Signs (Past 12 Hours) Vital Signs Temp Pulse Pulse Resp BP BP Pulse Ox 03/13/23 08:29 98.2 F 76 17 121/84 98 03/13/23 07:55 98.2 F 74 17 129/87 98 03/13/23 03:29 03/13/23 04:00 69 14 127/83 97 03/13/23 03:29 72 03/13/23 03:00 63 15 138/89 96 03/13/23 01:00 68 15 122/85 97 03/13/23 00:10 82 03/12/23 22:51 97 03/12/23 23:35 80 16 96 08/20/23 23:35 96 03/12/23 22:56 98.2 F 87 16 154/85 H 97 Pulse Ox O2 Del Method O2 Del Method O2 Flow Rate 03/13/23 08:29 Room Air 03/13/23 07:55 Room Air 03/13/23 03:29 97 Room Air 03/13/23 04:00 Room Air 03/13/23 03:29 03/13/23 03:00 Room Air 03/13/23 01:00 Room Air 03/13/23 00:10 03/12/23 22:51 Room Air 0 03/12/23 23:35 Room Air 03/12/23 23:35 Room Air 0 03/12/23 22:56 Room Air Laboratory Results reviewed CBC reviewed chemistry reviewed troponin personally discussed case with cardiology PG Care Time/CCT Total # of Minutes Spent Total Time Spent with Patient: Total time spent is greater than 50% in coordination of care (as documented) at patient's floor/unit and/or counseling patient: Coding Level of Care Code 58772 SUB INP/OBS CARE 235MIN Diagnoses Unstable angina I20.0 Cerebrovascular disease I67.9 Gastroesophageal reflux disease K21.9
--- NOTE | 2023-03-13 12:45 | Electrocardiogram Report ---
Test Reason : Blood Pressure : / mmHG Vent. Rate : 077 BPM Atrial Rate : 077 BPM P-R Int : 204 ms QRS Dur : 134 ms QT Int : 380 ms P-R-T Axes : 055 -75 077 degrees QTc Int : 430 ms Normal sinus rhythm Possible Left atrial enlargement Left axis deviation Non-specific intra-ventricular conduction delay Inferior infarct , age undetermined Anterolateral infarct , age undetermined Abnormal ECG When compared with ECG of 16-NOV-2021 00:32, Non-specific intra-ventricular conduction block is now Present Confirmed by Holland Gonzalez ([id number]) on 03/13/2023 12:44:51 PM Referred By: REFERRED SELF Confirmed By:Holland Gonzalez
--- NOTE | 2023-03-13 13:23 | Cardiology Consultation ---
Date of Consultation March 13, 2023 Assessment & Plan (1) Acute chest pain: (2) CAD (coronary artery disease), [place] coronary artery: (3) Left bundle branch block (LBBB): (4) Ischemic cardiomyopathy: Plan 1. Chest discomfort: His symptoms are compatible with unstable angina. Over the last 3 to 4 weeks he has had progressive exertional chest discomfort, before that he did not have any discomfort with any activity that he performed. More recently the episodes have progressed to where he was walking at a normal pace at [facility] on March 12, 2023 and developed bilateral chest discomfort with radiation to his neck. This is consistent with unstable angina. He has a left bundle IVCD pattern, therefore stress echo would not be beneficial. We could consider nuclear stress test but that will most likely be abnormal based on his history so would not be helpful. I would recommend going directly to catheterization. I discussed this with Dr. Sandoval, he agrees with this plan but would like to wait for the INR to drop before proceeding to catheterization. 2. Coronary disease: He has known coronary artery disease and has not had an evaluation for quite a few years. Based on his symptoms I suspect progression. He has probably not had an interim infarct based on his echocardiogram and recent troponin measurements. 3. Left bundle branch block: He has developed an IVCD of the left bundle type, on some tracing it is fairly classic for left bundle and another tracing it is little bit atypical but in any case it is present with no evidence of AV block. 4. Ischemic cardiomyopathy: He has had a cardiomyopathy for many years, he has not been able to tolerate CLARA inhibitors in the past but he is on valsartan. Entresto could be considered. He is only on low-dose metoprolol succinate and this could be increased as well. His ejection fraction is not in the range where we would consider a biventricular pacing. He does not appear to be in congestive heart failure. History of Present Illness Reason for Consultation: Chest pain Attending Physician: Josse Vinson MD History of Present Illness This is a 57-year-old male followed by Dr. Gusman in the office. He has a history of coronary disease which includes an acute myocardial infarction in September 2007 emergency catheterization demonstrated an occluded LAD for which he had stent placement. He had only minor disease in other vessels. In 2011 an echocardiogram showed left ventricular ejection fraction 35 to 40% with wall motion abnormalities. In March 2018 he had some speech difficulties, these were transient and resolved by the time he got to the hospital, a posterior left frontal lobe infarction was identified and there was decreased flow in the posterior branch of the left middle cerebral artery. Echocardiography April 12, 2018 suggests an ejection fraction of 30 to 35% with anterior hypokinesis. I believe with uncertainty as to the cause of the stroke he was started on Eliquis however had paresthesias in his legs, this was discontinued and he was started on Xarelto. He had recurrent symptoms and stopped the Xarelto. Pradaxa was initiated but he developed paresthesias of his toes and fingers and he stopped his medications as well. He was therefore started on warfarin. He did have a stress echo June 01, 2018 where he reached 86% of his maximal predicted heart rate without evidence of ischemia. His baseline ejection fraction was felt to be 40 to 45%. Another echocardiogram done May 05, 2022 shows mild left ventricular dilatation with moderate left ventricular systolic dysfunction and wall motion abnormalities, his ejection fraction is reported as 35 to 40%. Attempts were made to use CLARA therapy, however he did not tolerate that but he is on valsartan. He also remains on low-dose metoprolol succinate He presents now with increasing fatigue and chest and jaw discomfort. This has been progressive over the last 3 to 4 weeks. He describes feeling normal and having no practical limitation in his activities until 3 to 4 weeks ago when he began to have exertional bilateral shoulder discomfort which was relieved by 10 to 15 minutes of rest. This has been getting progressive (requiring less exertion to bring it on), on the day prior to presentation he was walking at [facility] and after walking a relatively short distance developed bilateral shoulder discomfort with radiation to his neck. This is the first time he has had radiation to his neck and that was relieved after 10 to 15 minutes of rest. Evaluation here includes an electrocardiogram on March 12, 2023 which shows sinus rhythm with a left bundle type IVCD pattern. 3 high-sensitivity troponins were all normal. Allergies Allergy/AdvReac Type Severity Reaction Status Date / Time Penicillins Allergy Severe Hives Verified 03/13/23 00:20 Sulfa (Sulfonamide Allergy Intermediate Rash Verified 03/13/23 00:20 Antibiotics) sulfamethoxazole Allergy Intermediate rash Verified 03/13/23 00:20 trimethoprim Allergy Intermediate rash Verified 03/13/23 00:20 apixaban [From Eliquis] AdvReac Intermediate numbness Verified 03/13/23 00:20 in feet atorvastatin AdvReac Intermediate Cramping Verified 03/13/23 00:20 of the Muscles dabigatran etexilate AdvReac Intermediate numbness Verified 03/13/23 00:20 [From Pradaxa] in feet lisinopril AdvReac Intermediate Cough Verified 03/13/23 00:20 losartan AdvReac Intermediate Palpitation Verified 03/13/23 00:20 s rivaroxaban [From Xarelto] AdvReac Intermediate numbness Verified 03/13/23 00:20 in feet Home Medications Medication Instructions Recorded Confirmed Type ascorbic acid (vitamin C) 250 mg 250 - 500 mg PO DAILY 08/18/18 03/13/23 History tablet (Vitamin C) cetirizine 10 mg capsule (Zyrtec) 10 mg PO DAILY PRN allergy symptoms 10/11/18 03/13/23 History rosuvastatin 20 mg tablet 20 mg PO DAILY #90 tabs 05/09/22 03/13/23 Rx valsartan 40 mg tablet 40 mg PO DAILY #90 tabs 11/24/22 03/13/23 Rx clopidogrel 75 mg tablet 75 mg PO HS #90 tabs 02/08/23 03/13/23 Rx metoprolol succinate 25 mg 25 mg PO DAILY #90 tabs 02/14/23 03/13/23 Rx tablet,extended release 24 hr cholecalciferol (vitamin D3) 25 25 mcg PO DAILY 03/13/23 03/13/23 History mcg (1,000 unit) capsule (Vitamin D3) warfarin 5 mg tablet See Rx Instructions .Route .COMPLEX 03/13/23 03/13/23 History zinc gluconate 50 mg tablet 0 mg PO DAILY 03/13/23 03/13/23 History Patient History Medical History Acute anterior epistaxis Acute ischemic cerebrovascular accident (CVA) involving middle cerebral artery territory Acute ischemic stroke Cerebrovascular disease Encounter for screening for malignant neoplasm of colon Encounter for screening for malignant neoplasm of rectum Ischemic cardiomyopathy Left bundle branch block (LBBB) 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 Presence of bare metal stent in anterior descending branch of left coronary artery STEMI (ST elevation myocardial infarction) Stroke Surgical History History of gastric surgery Pt states had "GI " surgery at 11 days of age for blockage Stented coronary artery Family History Other No significant family history Social History Smoking Status: Never smoker Second Hand Exposure: No; Do You Dip or Chew Tobacco: No; Hx Alcohol Use: No Hx Substance Use: No Preferred Language: Azeri Communication Ability: Effective Visual Impairment: No Limitations Hearing Ability: Normal Access Liaison Required: No Beliefs That Will Affect Care: None marital status: Current Living Situation: Spouse and Family Feels Safe at Home: Yes Assistive Devices: None Review of Systems Review of Systems: All systems reviewed & are unremarkable except as noted in HPI & below Physical Exam Physical Exam: Constitutional: Alert, cooperative and in no distress. HEENT: Unremarkable Neck: No jugular venous distention, carotid pulses are normal and equal bilaterally without bruits. Pulmonary: Clear to auscultation bilaterally. Cardiac: Regular rhythm with no murmur, gallop or rub. Abdomen: Soft, nontender with normal bowel sounds. Extremities: No edema. Distal pulses intact. Neurologic: No focal findings. Gait is steady. Skin: No rash, ecchymoses or petechiae. Results & Data Vital Signs (Past 12 Hours) Vital Signs Temp Pulse Pulse Resp BP Pulse Ox Pulse Ox 03/13/23 12:42 36.6 C 72 18 150/91 H 95 03/13/23 08:29 36.8 C 76 17 121/84 98 03/13/23 07:55 36.8 C 74 17 129/87 98 03/13/23 03:29 97 03/13/23 04:00 69 14 127/83 97 03/13/23 03:29 72 03/13/23 03:00 63 15 138/89 96 O2 Del Method O2 Del Method 03/13/23 12:42 Room Air 03/13/23 08:29 Room Air 03/13/23 07:55 Room Air 03/13/23 03:29 Room Air 03/13/23 04:00 Room Air 03/13/23 03:29 03/13/23 03:00 Room Air Laboratory Results Cardiac Enzymes 03/12/23 03/13/23 03/13/23 Range/Units 23:30 04:25 09:30 AST 29 (13-39) U/L Troponin I High Sens 10.2 11.4 10.5 (0-20) pg/ml Coagulation 03/12/23 Range/Units 23:30 PT 24.0 H (9.0-12.0) Seconds APTT 43.0 H* (21.0-31.0) Seconds CBC 03/12/23 Range/Units 23:30 WBC 8.99 (4.8-10.8) K/ul RBC 5.30 (4.70-6.10) M/uL Hgb 15.8 (14.0-18.0) g/dl Hct 44.5 (42.0-52.0) % Plt Count 250 (130-400) K/uL Neut # (Auto) 4.59 (1.40-6.50) K/uL Lymph # (Auto) 3.14 (1.2-3.4) K/uL [place] # (Auto) 1.02 H (0.11-0.59) K/uL Eos # (Auto) 0.16 (0-0.50) K/uL Baso # (Auto) 0.07 (0-0.2) K/uL Comprehensive Metabolic Panel 03/12/23 03/13/23 Range/Units 23:30 04:25 Sodium 138 141 (136-145) mmol/L Potassium 3.4 L 4.5 D (3.5-5.1) mmol/L Chloride 103 107 (98-107) mmol/L Carbon Dioxide 28 28 (21-32) mmol/L BUN 15 11 (6-23) mg/dl Creatinine 0.91 0.83 (0.6-1.4) mg/dl Glucose 126 H 108 H (70-99(Fasting)) mg/dl Calcium 9.2 9.2 (8.6-10.3) mg/dl AST 29 (13-39) U/L ALT 32 (7-52) U/L Alkaline Phosphatase 48 (34-104) U/L Total Protein 7.6 (6.0-8.3) gm/dl Albumin 4.7 4.4 (3.4-5.0) gm/dl Intake and Output 03/12/23 03/13/23 03/13/23 22:59 06:59 14:59 Intake Total 855 / 855 Balance 855 / 855 Intake: IV 655 / 655 Nss + 20Meq KCl 20 meq In 1,000 655 / 655 ml @ 80 mls/hr IV .[id number] Rx#:[id number] Oral 200 / 200 Other: Weight 90 kg 88.1 kg Weight Measurement Method Chair Scale Standing Scale Patient Weight 03/14/23 06:59 Weight 88.1 kg Diagnostic Findings Telemetry: Sinus rhythm with an IVCD pattern throughout. Appropriate heart rate. PG Care Time/CCT Total # of Minutes Spent Total Time Spent with Patient: Total time spent is greater than 50% in coordination of care (as documented) at patient's floor/unit and/or counseling patient: Coding Level of Care Code 06463 INT INP/OBS CARE 3/75MIN Diagnoses Acute chest pain R07.9 CAD (coronary artery disease), [place] coronary artery I25.10 Left bundle branch block (LBBB) I44.7 Ischemic cardiomyopathy I25.5
[2023-03-13] MEDS ORDERED: Heparin IV Adult Wt-Based Standard *NO* Bolus Protocol IV ONE (15:44)
[2023-03-13] MEDS ORDERED: HEPARIN SODIUM/DEXTROSE 25,000 UNITS/500 ML BAG IV SCH (16:00)
[2023-03-13 17:12] LABS: INR 2.4 (0.9-1.1); Prothrombin Time 24.4 Seconds (9.0-12.0)
--- NOTE | 2023-03-13 18:08 | XCELERA ---
[id number] \\[id number]
[2023-03-13] MEDS: CLOPIDOGREL BISULFATE 75 MG TAB PO SCH (20:17)
[2023-03-14 08:10] LABS: Basophils # (auto) 0.05 K/uL (0-0.2); Basophils % (auto) 0.7 %; Eosinophils # (auto) 0.21 K/uL (0-0.50); Eosinophils % (auto) 2.8 %; Hematocrit (blood only) 44.9 % (42.0-52.0); Hemoglobin 15.4 g/dl (14.0-18.0); Immature Granulocytes # (auto) 0.02 K/uL (0.01-0.20); Immature Granulocytes % (auto) 0.3 %; Lymphocytes # (auto) 2.48 K/uL (1.2-3.4); Lymphocytes % (auto) 32.8 %; Mean Corpuscular Hemoglobin 29.1 pg (25.0-34.0); Mean Corpuscular Hgb Conc 34.3 g/dL (32.0-36.0); Mean Corpuscular Volume 84.9 fL (80.0-100.0); Monocytes # (auto) 0.81 K/uL (0.11-0.59); Monocytes % (auto) 10.7 %; Neutrophils # (auto) 3.98 K/uL (1.40-6.50); Neutrophils % (auto) 52.7 %; Platelet Count 226 K/uL (130-400); RDW Coefficient of Variation 12.3 % (11.5-14.5); Red Blood Count 5.29 M/uL (4.70-6.10); White Blood Count 7.55 K/ul (4.8-10.8)
[2023-03-14 08:15] LABS: INR 2.6 (0.9-1.1); Prothrombin Time 26.5 Seconds (9.0-12.0)
[2023-03-14] MEDS: ROSUVASTATIN CALCIUM 20 MG TAB PO SCH (08:23)
[2023-03-14] MEDS: VALSARTAN 80 MG TAB PO SCH (08:24)
[2023-03-14] MEDS: ZINC SULFATE 220 MG CAPSULE PO SCH (08:24)
[2023-03-14] MEDS: CHOLECALCIFEROL 1,000 UNITS 25 MCG TAB PO SCH (08:24)
[2023-03-14] MEDS: METOPROLOL SUCC 25MG EXT REL TAB PO SCH (08:24)
[2023-03-14 08:40] LABS: Albumin Level 4.1 gm/dl (3.4-5.0); BUN Creatinine Ratio 11.2 (10-20); Est GFR (African American) 110.8 ml/min; Est GFR (Non-African American) 95.6 ml/min; Phosphorus 3.2 mg/dl (2.5-4.9); Potassium 4.2 mmol/L (3.5-5.1)
--- NOTE | 2023-03-14 09:30 | Cardiology Progress Note ---
Date of Service March 14, 2023 Assessment & Plan (1) Acute chest pain: (2) CAD (coronary artery disease), [place] coronary artery: (3) Left bundle branch block (LBBB): (4) Ischemic cardiomyopathy: Plan 1. Chest discomfort: His symptoms are compatible with unstable angina. Over the last 3 to 4 weeks he has had progressive exertional chest discomfort, before that he did not have any discomfort with any activity that he performed. More recently the episodes have progressed to where he was walking at a normal pace at [facility] on March 12, 2023 and developed bilateral chest discomfort with radiation to his neck. This is consistent with unstable angina. He has a left bundle IVCD pattern, therefore stress echo would not be beneficial. We could consider nuclear stress test but that will most likely be abnormal based on his history so may also not be helpful. I would recommend going directly to catheterization. I have discussed this with Dr. Sandoval, he agrees with this plan but would like to wait for the INR to drop before proceeding to catheterization. His INR remains in the mid 2 range today so we will check again tomorrow. 2. Coronary disease: He has known coronary artery disease and has not had an evaluation for quite a few years. Based on his symptoms I suspect progression. He has probably not had an interim infarct based on his echocardiogram and recent troponin measurements. 3. Left bundle branch block: He has developed an IVCD of the left bundle type, on some tracings it is fairly classic for left bundle and on other tracing it is little bit atypical but in any case it is present with no evidence of AV block. 4. Ischemic cardiomyopathy: He has had a cardiomyopathy for many years, he has not been able to tolerate CLARA inhibitors in the past but he is on valsartan. Entresto could be considered. He is only on low-dose metoprolol succinate and this could be increased as well. His ejection fraction is not in the range where we would consider a biventricular pacing. He does not appear to be in congestive heart failure. Admission and Anticipated Discharge Date Admission Date: March 13, 2023 Subjective He is feeling well today, he has been ambulating in the room and has had no chest discomfort. No other cardiovascular symptoms. Physical Exam 2 Physical Exam: Constitutional: Alert, cooperative and in no distress. HEENT: Unremarkable Neck: No jugular venous distention, carotid pulses are normal and equal bilaterally without bruits. Pulmonary: Clear to auscultation bilaterally. Cardiac: Regular rhythm with no murmur, gallop or rub. Abdomen: Soft, nontender with normal bowel sounds. Extremities: No edema. Distal pulses intact. Neurologic: No focal findings. Gait is steady. Skin: No rash, ecchymoses or petechiae. Results & Data Vital Signs (Past 12 Hours) Vital Signs Temp Pulse Pulse Resp BP Pulse Ox O2 Del Method 03/14/23 07: 36.5 C 65 20 115/74 95 Room Air 03/14/23 03:29 03/14/23 03:00 36.6 C 55 L 20 125/83 96 Room Air 03/13/23 22:00 68 03/13/23 22:53 36.6 C 80 16 123/80 95 Room Air O2 Del Method 03/14/23 07:23 03/14/23 03:29 Room Air 03/14/23 03:00 03/13/23 22:00 03/13/23 22:53 Laboratory Results Cardiac Enzymes 03/13/23 03/13/23 03/13/23 Range/Units 09:30 16:14 21:41 Troponin I High Sens 10.5 8.8 11.1 (0-20) pg/ml Coagulation 03/13/23 03/14/23 Range/Units 16:14 07:13 PT 24.4 H 26.5 H (9.0-12.0) Seconds CBC 03/14/23 Range/Units 07:13 WBC 7.55 (4.8-10.8) K/ul RBC 5.29 (4.70-6.10) M/uL Hgb 15.4 (14.0-18.0) g/dl Hct 44.9 (42.0-52.0) % Plt Count 226 (130-400) K/uL Neut # (Auto) 3.98 (1.40-6.50) K/uL Lymph # (Auto) 2.48 (1.2-3.4) K/uL [place] # (Auto) 0.81 H (0.11-0.59) K/uL Eos # (Auto) 0.21 (0-0.50) K/uL Baso # (Auto) 0.05 (0-0.2) K/uL Comprehensive Metabolic Panel 03/14/23 Range/Units 07:13 Sodium 141 (136-145) mmol/L Potassium 4.2 (3.5-5.1) mmol/L Chloride 106 (98-107) mmol/L Carbon Dioxide 29 (21-32) mmol/L BUN 10 (6-23) mg/dl Creatinine 0.89 (0.6-1.4) mg/dl Glucose 96 (70-99(Fasting)) mg/dl Calcium 9.0 (8.6-10.3) mg/dl Albumin 4.1 (3.4-5.0) gm/dl Intake and Output 03/13/23 03/14/23 03/14/23 22:59 06:59 14:59 Intake Total 350 / 1205 Balance 350 / 1205 Intake: Oral 350 / 550 Other: Other Intake Source Patient is NPO # Unmeasured Voids 1 Weight 88.2 kg Weight Measurement Method Built in [facility] Diagnostic Findings Telemetry: Sinus rhythm, no significant arrhythmia. PG Care Time/CCT Total # of Minutes Spent Total Time Spent with Patient: Total time spent is greater than 50% in coordination of care (as documented) at patient's floor/unit and/or counseling patient: Coding Level of Care Code 18753 SUB INP/OBS CARE 2/35MIN Diagnoses Acute chest pain R07.9 CAD (coronary artery disease), [place] coronary artery I25.10 Left bundle branch block (LBBB) I44.7 Ischemic cardiomyopathy I25.5
[2023-03-14] MEDS ORDERED: PHYTONADIONE 5 MG TAB PO STA (12:23)
--- NOTE | 2023-03-14 17:35 | Electrocardiogram Report ---
Test Reason : Blood Pressure : / mmHG Vent. Rate : 059 BPM Atrial Rate : 059 BPM P-R Int : 214 ms QRS Dur : 140 ms QT Int : 388 ms P-R-T Axes : 057 -68 071 degrees QTc Int : 384 ms Sinus bradycardia with 1st degree A-V block Left axis deviation Left bundle branch block Abnormal ECG When compared with ECG of 12-MAR-2023 23:02, Left bundle branch block has replaced Non-specific intra-ventricular conduction delay Confirmed by Holland Gonzalez ([id number]) on 03/14/2023 5:35:31 PM Referred By: REFERRED SELF Confirmed By:Holland Gonzalez
[2023-03-14 18:01] LABS: INR 2.2 (0.9-1.1)
[2023-03-14] MEDS: CLOPIDOGREL BISULFATE 75 MG TAB PO SCH (20:09)
[2023-03-15 07:20] LABS: Basophils # (auto) 0.09 K/uL (0-0.2); Basophils % (auto) 1.1 %; Eosinophils # (auto) 0.22 K/uL (0-0.50); Eosinophils % (auto) 2.6 %; Hematocrit (blood only) 46.5 % (42.0-52.0); Hemoglobin 16.2 g/dl (14.0-18.0); Immature Granulocytes # (auto) 0.02 K/uL (0.01-0.20); Immature Granulocytes % (auto) 0.2 %; Lymphocytes # (auto) 2.48 K/uL (1.2-3.4); Lymphocytes % (auto) 29.8 %; Mean Corpuscular Hemoglobin 29.3 pg (25.0-34.0); Mean Corpuscular Hgb Conc 34.8 g/dL (32.0-36.0); Mean Corpuscular Volume 84.2 fL (80.0-100.0); Mean Platelet Volume 9.6 fL (9.4-12.4); Monocytes # (auto) 1.01 K/uL (0.11-0.59); Monocytes % (auto) 12.1 %; Neutrophils % (auto) 54.2 %; Platelet Count 232 K/uL (130-400); RDW Coefficient of Variation 12.2 % (11.5-14.5); Red Blood Count 5.52 M/uL (4.70-6.10); White Blood Count 8.32 K/ul (4.8-10.8)
[2023-03-15 07:26] LABS: INR 1.7 (0.9-1.1); Prothrombin Time 17.7 Seconds (9.0-12.0)
[2023-03-15 07:42] LABS: Albumin Level 4.3 gm/dl (3.4-5.0); BUN Creatinine Ratio 12.2 (10-20); Calcium 9.2 mg/dl (8.6-10.3); Creatinine Clr Calc Pharmacy 98.8 ml/min; Est GFR (African American) 110.3 ml/min; Est GFR (Non-African American) 95.1 ml/min; Phosphorus 4.1 mg/dl (2.5-4.9); Potassium 4.4 mmol/L (3.5-5.1)
[2023-03-15] MEDS ORDERED: HEPARIN SODIUM/DEXTROSE 25,000 UNITS/500 ML BAG IV SCH (08:00)
[2023-03-15] MEDS: VALSARTAN 80 MG TAB PO SCH (08:45)
[2023-03-15] MEDS: ROSUVASTATIN CALCIUM 20 MG TAB PO SCH (08:46)
[2023-03-15] MEDS ORDERED: HEPARIN (PORCINE) 1000 UNIT/ML 10 ML (CATH LAB USE ONLY) ONE (09:19)
[2023-03-15] MEDS ORDERED: niCARdipine HCL INJ 2.5 MG/ML 10 ML AMP ONE (09:19)
--- NOTE | 2023-03-15 09:19 | Pre Anesthesia Assessment ---
Date of Service March 15, 2023 Pre Sedation Assessment Vital Signs Temp Pulse Pulse Resp BP Pulse Ox O2 Del Method 03/15/23 09:04 96 H 18 138/88 96 Room Air 03/15/23 07:28 37.0 C 88 16 109/69 96 Room Air 03/15/23 03:04 36.6 C 61 20 121/78 97 Room Air 03/14/23 23:11 36.8 C 67 18 118/78 95 Room Air 03/14/23 19:25 36.4 C L 63 20 126/82 95 Room Air 03/14/23 18:12 66 03/14/23 15:32 36.7 C 72 19 138/90 94 Room Air 03/14/23 11:34 36.5 C 60 19 143/91 H 96 Room Air Cardiovascular RRR, no murmur, no edema Respiratory normal respiratory effort, lungs clear to auscultation Pre-Sedation Airway Assessment Smoking Status: Never smoker Hx Sleep Apnea: No Hx Difficult Intubation: No Short, Thick Neck: No Thyromental Distance: > or= 3.5 Finger Breadths Oral Cavity: + WNL Mallampati Class: II ASA: ASA3 NPO Status Date of Last Intake of Fluids: 03/15/23 Time of Last Intake of Fluids: 07:00 Date of Last Intake of Solid Food: 03/14/23 Time of Last Intake of Solid Foods: 22:00 Notes The planned sedation has been discussed with the patient. Informed Consent was obtained. I have identified the patient, determined the appropriateness of sedation and have assessed the patient immediately prior to the procedure. All medicine(s) and interventions are by my order.
[2023-03-15] MEDS ORDERED: MIDAZOLAM HCL 1 MG/ML 2ML VIAL ONE (09:20)
[2023-03-15] MEDS ORDERED: fentaNYL citrate PF 100 MCG/2 ML VIAL ONE (09:20)
[2023-03-15] MEDS ORDERED: NITROGLYCERIN/D5W 100MCG/ML 20ML SYR ONE (09:21)
[2023-03-15] MEDS: Heparin IV Adult Wt-Based Standard *NO* Bolus Protocol IV SCH ×2 (09:35→09:54)
[2023-03-15] MEDS ORDERED: ATROPINE SULFATE 0.1 MG/ML 10ML SYR IV ONE (09:58)
[2023-03-15] MEDS ORDERED: WARFARIN SOD 10 MG TAB PO ONE (11:23)
--- NOTE | 2023-03-15 11:26 | Post Anesthesia Assessment ---
Date of Service March 15, 2023 Post Sedation Assessment Vital Signs Temp Pulse Pulse Resp BP Pulse Ox O2 Del Method 03/15/23 11:08 36.8 C 72 18 119/80 95 Room Air 03/15/23 10:50 71 18 111/74 94 Room Air 03/15/23 10:35 68 18 109/70 94 Room Air 03/15/23 09:04 96 H 18 138/88 96 Room Air 03/15/23 07:28 37.0 C 88 16 109/69 96 Room Air 03/15/23 03:04 36.6 C 61 20 121/78 97 Room Air 03/14/23 23:11 36.8 C 67 18 118/78 95 Room Air 03/14/23 19:25 36.4 C L 63 20 126/82 95 Room Air 03/14/23 18:12 66 03/14/23 15:32 36.7 C 72 19 138/90 94 Room Air 03/14/23 11:34 36.5 C 60 19 143/91 H 96 Room Air Recovery Score Activity: Moves 4 extremities Respiration: Deep Breath/Cough Circulation: +/-20% PreAnes Value Consciousness: Fully Awake Oxygen Saturation: > 92% On Room Air Post Anesthesia Score: 10 Discharge Sedation Level of Care: Fast Track Phase II Post Sedation Plan On clinical assessment, the patient appears to have tolerated the sedation without complications. Patient is recovering as anticipated. Patient will continue to be monitored by nursing and may be discharged when sedation discharge criteria are met per below protocol. Upon Completions of procedure up to 15 minutes continue every 5 minute vital signs and the P.A.R. score; then discharge to a Phase I or Fast Track to Phase II per the following guidelines: * Discharge Patient to appropriate Phase II area if PAR is 8 or greater or return to pre- procedure baseline. The post - procedure orders will be as directed. * If PAR score is less than 8 or not return to pre-procedure baseline then patient will follow Phase I monitoring till PAR is reached for Phase II. The Phase I may be done in procedure room or may call to secure a Phase I area. * If naloxone or flumazenil are used for reversal, hold in Phase I for continued monitoring from when last reversal dose was given for a minimum of 60 minutes or longer pending the nurse and/or physician discretion of patient condition before discharge to Phase II. Please call the Sedation Physician to re-evaluate and complete post-note for discharge to Phase II area. Do NOT discharge from procedure sedation or Phase 1 until post- sedation evaluation note is complete by procedure /sedation MD Sedation Discharge Instructions to be given to the patient at discharge to home. [facility] [place] Procedure Codes (Charges) Indication for Procedure Indication for procedure: Unstable angina Sedation/Anesthesia Procedure 1: Sedation/Anesthesia: 09755 Mod Sedation by the same physician;Init15 Min Child Age 5 & Up (Initial 15 min, start time 0941) Total Sedation Time (minutes): 49 Procedure 2: Sedation/Anesthesia: 64575 Mod Sedation by the same physician; Ea [id number] Minutes (Additional 34 min, end time 1030) Total Sedation Time (minutes): 49
[2023-03-15] MEDS: CHOLECALCIFEROL 1,000 UNITS 25 MCG TAB PO SCH (11:37)
[2023-03-15] MEDS: ZINC SULFATE 220 MG CAPSULE PO SCH (11:37)
[2023-03-15] MEDS: METOPROLOL SUCC 25MG EXT REL TAB PO SCH (11:37)
--- NOTE | 2023-03-15 16:42 | Hospitalist Progress Note ---
Date of Service March 15, 2023 Assessment & Plan (1) Unstable angina: Plan: pt presented with CP, h/o CAD had a Bare metal stent LAD, GABI 11/13, RCA on plavix, metoprolol,cretor, valsartan initial troponin 10->11 Pt with a history of chronic systolic heart failure, EF 35-40% Dr. Sandoval is a cardiology performed left heart catheterization on 823 with drug-eluting stent placed right coronary artery. Patient started on chronic anticoagulation post procedure 10 mg of warfarin given p.o. (2) Cerebrovascular disease: Plan: Acute ischemic cerebrovascular accident (CVA) involving middle cerebral artery territory (3) Gastroesophageal reflux disease: Admission and Anticipated Discharge Date Admission Date: March 13, 2023 Subjective Cardiac catheterization on 03/15/2023 with GABI placed in RCA, doing well post procedure, given 10 mg Coumadin updated at bedside Physical Exam Physical Exam: patient awake alert appropriate he is pain-free at this time wrist access site is clean and dry cardiac exam is regular lungs are clear Results & Data Results & Data Vital Signs (Past 12 Hours) Vital Signs Temp Pulse Resp BP BP Pulse Ox O2 Del Method 03/15/23 15:37 98.2 F 70 18 122/74 97 Room Air 03/15/23 14:37 98.2 F 73 18 135/81 95 Room Air 03/15/23 13:37 98.1 F 69 18 129/81 97 Room Air 03/15/23 12:37 98.2 F 67 17 124/63 96 Room Air 03/15/23 12:07 98.1 F 71 18 122/81 96 Room Air 03/15/23 11:37 98.1 F 71 18 122/80 97 Room Air 03/15/23 11:22 98.2 F 79 18 114/74 96 Room Air 03/15/23 11:08 98.2 F 72 18 119/80 95 Room Air 03/15/23 10:50 71 18 111/74 94 Room Air 03/15/23 10:35 68 18 109/70 94 Room Air 03/15/23 09:04 96 H 18 138/88 96 Room Air 03/15/23 07:28 98.6 F 88 16 109/69 96 Room Air Laboratory Results reviewed CBC reviewed PRP PG Care Time/CCT Total # of Minutes Spent Total Time Spent with Patient: Total time spent is greater than 50% in coordination of care (as documented) at patient's floor/unit and/or counseling patient: Coding Level of Care Code 25680 SUB INP/OBS CARE Diagnoses Unstable angina I20.0 Cerebrovascular disease I67.9 Gastroesophageal reflux disease K21.9
--- NOTE | 2023-03-15 17:49 | Electrocardiogram Report ---
Test Reason : Blood Pressure : / mmHG Vent. Rate : 069 BPM Atrial Rate : 069 BPM P-R Int : 202 ms QRS Dur : 132 ms QT Int : 394 ms P-R-T Axes : 048 -72 071 degrees QTc Int : 422 ms Normal sinus rhythm Left axis deviation Left bundle branch block Abnormal ECG When compared with ECG of 14-MAR-2023 05:33, No significant change Confirmed by Holland Gonzalez ([id number]) on 03/15/2023 5:49:05 PM Referred By: REFERRED SELF Confirmed By:Holland Gonzalez
--- NOTE | 2023-03-15 18:06 | Electrocardiogram Report ---
Test Reason : Blood Pressure : / mmHG Vent. Rate : 078 BPM Atrial Rate : 078 BPM P-R Int : 208 ms QRS Dur : 132 ms QT Int : 394 ms P-R-T Axes : 057 -71 081 degrees QTc Int : 449 ms Poor data quality, interpretation may be adversely affected Normal sinus rhythm Left axis deviation Left bundle branch block Abnormal ECG When compared with ECG of 15-MAR-2023 05:59, (unconfirmed) No significant change was found Confirmed by Holland Gonzalez ([id number] on 03/15/2023 6:06:09 PM Referred By: REFERRED SELF Confirmed By:Holland Gonzalez
[2023-03-15] MEDS: CLOPIDOGREL BISULFATE 75 MG TAB PO SCH (20:04)
[2023-03-16 07:45] LABS: INR 1.9 (0.9-1.1); Prothrombin Time 19.5 Seconds (9.0-12.0)
[2023-03-16 08:09] LABS: BUN Creatinine Ratio 12.2 (10-20); Calcium 9.4 mg/dl (8.6-10.3); Est GFR (African American) 110.3 ml/min; Est GFR (Non-African American) 95.1 ml/min; Magnesium 1.9 mg/dl (1.7-2.4)
[2023-03-16] MEDS: ZINC SULFATE 220 MG CAPSULE PO SCH (08:52)
[2023-03-16] MEDS: VALSARTAN 80 MG TAB PO SCH (08:53)
[2023-03-16] MEDS: CHOLECALCIFEROL 1,000 UNITS 25 MCG TAB PO SCH (08:53)
[2023-03-16] MEDS: METOPROLOL SUCC 25MG EXT REL TAB PO SCH (08:53)
[2023-03-16] MEDS: ROSUVASTATIN CALCIUM 20 MG TAB PO SCH (08:53)
--- NOTE | 2023-03-16 11:08 | Discharge Summary ---
Date of Service March 16, 2023 Admission HPI Per Admitting Provider The patient is a 57-year-old male with a past medical history including CAD, drug-eluting RCA stent, HFrEF with EF 35-40%, hyperlipidemia, long-term use of anticoagulation, history of FL, hypertension, GERD, pyogenic granuloma of nares, bare-metal stent in the anterior descending branch of left coronary artery, ischemic cardiomyopathy and cerebrovascular disease. The patient presents with symptoms as noted above, suggestive of unstable angina. He does describe some reflux type symptoms, which could be further addressed after his cardiac work- up. He has been taking his Coumadin as directed, and INR is 2.3, and has also been taking his Plavix as directed. He has been having difficulty tolerating his rosuvastatin, as it has been causing some right foot pain, similar to what happened with him with statins in the past. Principal Diagnosis Unstable Angina Discharge Exam General: A&Ox3. NAD. Cooperative. HEENT: Atraumatic, normocephalic. Pulm: CTAB A&P. -wheezes, -rales, -rhonchi. Symmetrical chest rise. No increased work of breathing. No respiratory distress. Cardiac: RRR, -mrg. Radial pulses intact and symmetrical. Abdominal: Nontender, nondistended, soft. BS present. Ext: R wrist with dressing intact, PT pulse intact bilaterally. Distal extremity strength/sensation intact bilat. Discharge Data Allergies Allergy/AdvReac Type Severity Reaction Status Date / Time Penicillins Allergy Severe Hives Verified 03/13/23 00:20 Sulfa (Sulfonamide Allergy Intermediate Rash Verified 03/13/23 00:20 Antibiotics) sulfamethoxazole Allergy Intermediate rash Verified 03/13/23 00:20 trimethoprim Allergy Intermediate rash Verified 03/13/23 00:20 apixaban [From Eliquis] AdvReac Intermediate numbness Verified 03/13/23 00:20 in feet atorvastatin AdvReac Intermediate Cramping Verified 03/13/23 00:20 of the Muscles dabigatran etexilate AdvReac Intermediate numbness Verified 03/13/23 00:20 [From Pradaxa] in feet lisinopril AdvReac Intermediate Cough Verified 03/13/23 00:20 losartan AdvReac Intermediate Palpitation Verified 03/13/23 00:20 s rivaroxaban [From Xarelto] AdvReac Intermediate numbness Verified 03/13/23 00:20 in feet Consultations 03/13/23 01:25 ED Decision to Admit Stat 03/13/23 03:29 Consult Cardiology Routine 03/15/23 10:55 Consult Cardiac Rehabilitation Routine Procedures Performed Operation Date: 03/15/23 09:30 Actual Procedures p Cath, Left with Cors and Vent - Morgan Sandoval MD, PhD p Drug Eluting Stent SGl Vessel - Morgan Sandoval MD, PhD Ordered Studies 03/13/23 00:48 US abdomen limited Stat 03/15/23 08:43 CL Cath Imgs for PACS use only Stat 03/15/23 09:06 CL Cath Imgs for PACS use only Stat Hospital Course (1) Unstable angina: Presented with unstable angina and chest discomfort History of CAD with past stents to LAD and RCA, 1 GABI in 1 BMS. Last echo EF 35% and stable at last follow-up 10/2022 [employer] MARKET[employer] Underwent cardiac catheterization 03/15; GABI placed to RCA Patient doing well postprocedure, no chest pain, no shortness of breath ambulating pain-free. No edema Patient feels well, eager for discharge home on bedside visit 03/16. No ongoing concerns per cardiology, okay for discharge with outpatient follow-up follow-up at that time Continue Plavix, warfarin, metoprolol, rosuvastatin, valsartan Patient will take a 5 mg dose of warfarin tonight, check his INR tomorrow, and contact cardiology office for INR adjustments as needed (2) Cerebrovascular disease: Acute ischemic cerebrovascular accident (CVA) involving middle cerebral artery territory. On antiplatelet and anticoagulation as noted above. No new strokelike deficits during admission. (3) Gastroesophageal reflux disease: No acute symptoms during admission Total Time Total Time Spent Total Time Spent (In Minutes): Time spend day of discharge 35 minutes including direct patient care, documentation, review of labs and images, and coordination of care. Discharge Plan Discharge Items Patient Disposition: Home - Self-Care Reason For Visit: UNSTABLE ANGINA Discharge Diagnosis: Severe CAD Activity: Per Instructions section Non-emergency contact: Guide Visitor Call non-emergency contact if: you have any medication questions, your symptoms worsen, your pain is not controlled, you have a fever, your wound has increased redness and your wound has increased drainage Follow-up/Referrals: David Johnson MD [Primary Care Provider] - Diet: Heart Healthy Add Attending Provider Instructions: ACTIVITY RECOMMENDATIONS: Excess manipulation of the wrist should be avoided for the next 24-48 hours. * No lifting over 2 pounds (approximately a 1/2 gallon of milk) with the utilized arm for 24 hours. * No strenuous activity such as bowling or tennis for 3 days. * Keep the site of the procedure covered with a bandage for 24 hours. *You may shower the day after the procedure. Do not take a tub bath or submerge the puncture site in water for the next 3 days. *Do not operate any motorized equipment for 3 days. SPECIAL CARE INSTRUCTIONS: The site may be slightly bruised and sore following your procedure. Should any of the following occur, contact the Dr. who performed your procedure. 1. Redness/inflammation, swelling, chills, or fever, or colored drainage at procedure site within 3-7 days after your procedure. 2. Coldness, discoloration, ongoing numbness, severe pain, or swelling. Expect mild tingling of hand and tenderness at the puncture site for up to three days. If this persists beyond three days, or other symptoms develop, notify the Dr. who performed your procedure. BLEEDING: If the procedure site on your wrist begins to bleed, do not panic 1. Place 1 or 2 fingers firmly just slightly above the insertion site to stop the bleeding. You may be able to feel your pulse as you hold pressure. 2. Lift your finger after 5 minutes to see if the bleeding has stopped. 3. Once the bleeding has stopped, gently wipe the wrist area clean with a bandage. * If the bleeding from your wrist does not stop after 10 minutes, or if there is a large amount of bleeding or spurting, call 911 (do not drive yourself to the hospital). SKIN IRRITATION: * You may experience some redness and/or swelling in the area where radiation was administered. If any skin irritation occurs, please contact your family physician. FOLLOW UP VISIT: Keep any scheduled doctor appointments. Pending Studies at Discharge: No Stand-Alone Forms: My [employer], Smoking Cessation Medications and DC Order Prescriptions: Continued Zyrtec 10 mg capsule 10 mg PO DAILY PRN (Reason: allergy symptoms) rosuvastatin 20 mg tablet 20 mg PO DAILY Qty: 90 3RF valsartan 40 mg tablet 40 mg PO DAILY Qty: 90 3RF clopidogrel 75 mg tablet 75 mg PO HS Qty: 90 3RF metoprolol succinate 25 mg tablet extended release 24 hr 25 mg PO DAILY Qty: 90 3RF ascorbic acid (vitamin C) [Vitamin C] 250 mg Tablet 250 - 500 mg PO DAILY zinc gluconate 50 mg Tablet 0 mg PO DAILY Rx Instructions: PT UNSURE OF STRENGTH cholecalciferol (vitamin D3) [Vitamin D3] 25 mcg (1,000 unit) Capsule 25 mcg PO DAILY warfarin 5 mg tablet See Rx Instructions .ROUTE .COMPLEX Protocol: Dose Management Condition: Monday Dose/Route: 5 mg Instruction: 1 x 5 mg tablet Condition: Monday Dose/Route: 5 mg Instruction: 1 x 5 mg tablet Condition: Monday Dose/Route: 5 mg Instruction: 1 x 5 mg tablet Condition: Monday Dose/Route: 5 mg Instruction: 1 x 5 mg tablet Condition: Dose/Route: 5 mg Instruction: 1 x 5 mg tablet Condition: Monday Dose/Route: 7.5 mg Instruction: 1.5 x 5 mg tablets Condition: Monday Dose/Route: 5 mg Instruction: 1 x 5 mg tablet Protocol Text: Adjustment Start Date: Monday03/13/23 INR Value: 2.3 INR Date: 03/12/23 Recheck Date: 03/27/23 Rx Instructions: TAKES 7.5 MG ON FRIDAYS ONLY, THEN 5 MG ALL OTHER DAYS. Discharge Orders: Discharge Order (Routine); Ordered 03/16/23 Ordered By: Michael Cagle Admission Data Admit Date/Time: 03/13/23 01:46 Attending Provider: Michael Cagle Admit Provider: Alejandro Loving Primary Care Provider: David Johnson Other Providers: Alejandro Loving ; Karsten Christianson Coding Level of Care Code 50255 INP/OBS DISCH >30 MIN Diagnoses Unstable angina I20.0 Cerebrovascular disease I67.9 Gastroesophageal reflux disease K21.9
--- NOTE | 2023-03-16 14:23 | Cardiac Catheterization ---
[facility] Data: Demolitionist Cardiac Status Clinical evaluation leading to the procedure CAD Presenation: Unstable angina Anginal Classification: CCS IV Heart Failure: No Cardiogenic Shock within 24 Hours: No Cardiac Arrest within 24 Hours: No Imaging Studies Past 6 Months: Yes Stress Studies Past 6 Months: No Coronary Anatomy Dominant: Right Left Main (% Stenosis): Normal LAD (% Stenosis): Proximal (Stent patent, mild disease) D1 (% Stenosis): Normal Circumflex (% Stenosis): Proximal (Mild) OM1 (% Stenosis): Normal L PL1 (% Stenosis): Proximal (40 to 50%) RCA (% Stenosis): Proximal (Diffuse mild), Mid (95 to 99% preceding previously placed stent) and Distal R PDA (% Stenosis): Ostial (100%) R PL1 (% Stenosis): Normal Ramus (% Stenosis): Normal Diagnostic Physicians Name: Morgan Sandoval MD, PhD Closure Device Percutaneous Entry Location: Radial Closure Device: Radial Band Recommendations: Medical Therapy and/or Counseling and PCI without planned CABG PCI Indication: Unstable Angina Lesion Segment Name: Mid RCA Culprit Artery: Yes Stenosis Prior to Rx (%): 95-99 Chronic Total Occlusion: No Pre-Procedure OK Flow: 1 Previously Treated Lesion: No Lesion Complexity: Non-High/Non-C Lesion Length (mm): 15 Thrombus Present: Yes Bifurcation Lesion: No Guidewire Across Lesion: Yes Intraprocedure Events Significant Disection: No Perforation: No Cardiac Cath Procedure Full Procedure Date March 16, 2023 Pre-Procedure Diagnosis Pre-Procedure Diagnosis: Angina AUC Score AUC Score: 9 Post-Procedure Diagnosis Post-Procedure Diagnosis: Severe CAD and Successful PCI Procedure(s) Performed Procedure(s) Performed: Coronary Angiography and Drug Eluting Stent Glue Mill Operator Morgan Sandoval MD, PhD Estimated Blood Loss Estimated Blood Loss: 5 mL Medication(s) Medication(s): Fentanyl, Heparin, Lidocaine 1%, Nicardipine, Nitroglycerin and Versed Summary of Findings Brief description: Patient was brought to the cardiac catheterization suite where he was shaved and prepped in a sterile fashion. Sedated using IV Versed and fentanyl. Soft tissues of the right wrist were anesthetized using 2 mL of 1% Xylocaine. The right radial artery was accessed using a modified Seldinger technique and a 6 Qatari radial artery glide sheath was placed. Patient was provided anticoagulation with IV heparin and antispasmodics including nicardipine and nitroglycerin. All catheters were advanced and exchanged over a 0.035 J-tip wire. Left coronary angiography in orthogonal views with a 5 Qatari JL 3.5 diagnostic catheter. Right coronary angiography in orthogonal views with a 5 Qatari JR4 diagnostic catheter. We next proceeded with PCI of the RCA. All diagnostic catheters were removed. PCI was undertaken using a 6 Qatari JR4 guide catheter. ACT was checked and additional heparin was provided as needed to maintain therapeutic anticoagulation. BMW reversal guidewire was advanced with the guide catheter and positioned distally in the RCA. Lesion was predilated with a 2.5 x 15 mm trek balloon up to 8 yola followed by a second inflation to 12 yola. Balloon was removed. Stent implantation using a 4.0 x 22 mm Clyde drug-eluting stent deployed at 18 yola. Stent balloon removed and eviction specialist angiography performed. The overlapped portion of the stent (distal stent with old stent proximal segment) was postdilated using a 4.0 x 9 mm noncompliant balloon. The mid and proximal portion of the new stent were then postdilated using a 4.5 x 15 mm noncompliant balloon inflated to a maximum of 19 yola. Noncompliant balloon removed. Cleaner Window angiography performed. Guide wire was removed. Final angiographic evaluation was performed in orthogonal views. Guide catheter was removed. Radial artery sheath was removed and hemostasis obtained using the vascular band. Patient was hemodynamically stable and asymptomatic. He was returned to the recovery area. This ended the case. Coronary angiography findings: Left wrcz-xwvub-wkhaakj vessel trifurcating into LAD, ramus, and circumflex. No more than mild luminal irregularities LAD-large caliber and transapical. Proximal segment has a previously placed stent which has only mild luminal irregularities and no more than mild disease preceding the stent. LAD provides a large caliber branching first diagonal and several large septal branches. Mid and distal LAD have no angiographically significant disease. Qpwin-nxswx-vorhfui vessel which branches distally. No more than mild luminal irregularities OKc-zfhyd-qtodntm vessel which provides a large branching OM1. Proximal AV groove vessel has mild disease. The OM1 has 2 major branches without disease. The mid and distal AV groove circumflex continue and have only mild luminal irregularities before terminating as a small caliber posterolateral branch. There is a focal 40 to 50% stenosis in the early part of the posterolateral branch. RCA-very large caliber and dominant. Proximal segment with diffuse mild disease up to 30% narrowing. Mid vessel has a 95 to 99% stenosis occurring before the previously placed stent. That stent is widely patent. There is OK I flow beyond the lesion. The distal epicardial vessel has mild luminal irregularities and then bifurcates into the PDA and posterolateral branches. Posterolateral branch receives a large collateral from the left side but itself has minimal disease. The collateral appears larger than on prior study. The PDA appears to be 99-100% occluded at the ostium. This is new compared to prior study. PCI of RCA- 0% residual stenosis post PCI of the mid RCA. OK-3 flow post PCI Reestablishment of flow in the PDA without PCI to the PDA No evidence of dissection or perforation post PCI Summary: 1. Severe coronary disease in the mid RCA and occlusion of the PDA. 2. Widely patent prior stents 3. Successful PCI with implantation of a drug-eluting stent in an overlap fashion with his prior stent in the mid LAD. Excellent angiographic result and increased flow allows for reconstitution of the right PDA. 4. Patient will resume Plavix and warfarin therapy for his stent implantation. 5. Continue guideline directed medical therapy for secondary prevention of coronary disease Hemodynamics Rest Ao:: 105/71 mmHg Final Ao: 90/67 mmHg LV: Not performed Recommendations Recommendations: Medical Therapy and/or Counseling and PCI without planned CABG Radiation Exposure (mGy) 1818 mGy, fluoroscopy time 12.3 minutes Contrast (mls) 149 mL Anesthesia 2 mg IV Versed, 50 mcg IV fentanyl. Start time 940, end time 1030 Procedural Complication(s) None Disposition Recovery Room\PACU I attest to the content of the Intraoperative Record and any orders documented therein. Any exceptions are noted below. [facility] Card Cath Procedure Codes Cardiac Catheterization Procedure 1: Cardiovascular Cath Procedures: 54937 Coronaries Moderate Sedation Procedure 1: Sedation/Anesthesia: 19886 Mod Sedation by the same physician;Init15 Min Child Age 5 & Up (Initial 15 minutes, start 09) Procedure 2: Sedation/Anesthesia: 42680 Mod Sedation by the same physician; Ea [id number] Minutes (Additional 34 minutes, end time 1030) Stenting Procedure 1: Cardiovascular Stent Procedures: 86049 Perc transcatheter placement of intracoronary stent(s), with ang (RCA) PG Care Time/CCT Total # of Minutes Spent Total Time Spent with Patient: Total time spent is greater than 50% in coordination of care (as documented) at patient's floor/unit and/or counseling patient:
[2023-03-16] MEDS ORDERED: WARFARIN SOD 5 MG TAB PO SCH (16:00)
[2023-03-17] MEDS ORDERED: WARFARIN SOD 7.5 MG TAB PO SCH (16:00)
== END 2023-03-16 11:42 | disposition home or self-care (01) | DRG 247 ==
LOC: ED 22:50 → SUATTDRO 03-13 01:46 → EDINP 03-13 01:46 → 2S 03-13 03:30